=== PATIENT | female | born 1955 | race Caucasian/White ===

== ENCOUNTER 2017-11-19 11:11 | Emergency (ER) | payer MEDICARE, MEDICAID, SELFPAY ==
[2017-11-19 11:18] VITALS: BP 147/88; PULSE 95; RESP 12; TEMP 37; O2SAT 95
[2017-11-19] MEDS: HYDROcodone 5/Acetaminophen 325 TAB PO (12:01)
--- NOTE | 2017-11-19 12:20 | NUR.NOTE ---
Nursing Note: Patients wound cleaned with hibiclens and water per provider order. Tolerated with procedure without complaint
[2017-11-19] MEDS: Bacitracin 30 GM TUBE TP (13:08)
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
[2017-11-19 13:30] VITALS: BP 147/88; PULSE 95; RESP 12; TEMP 37; O2SAT 95
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
== END 2017-11-19 13:31 | disposition home or self-care (01) ==
PROVIDERS: Emergency Provider Nurse Practitioner Family
DX: T23.231A Burn of second degree of multiple right fingers (nail), not including thumb, initial encounter (principal); T22.211A Burn of second degree of right forearm, initial encounter; T22.231A Burn of second degree of right upper arm, initial encounter; T22.251A Burn of second degree of right shoulder, initial encounter; T21.23XA Burn of second degree of upper back, initial encounter; T31.0 Burns involving less than 10% of body surface; X08.8XXA Exposure to other specified smoke, fire and flames, initial encounter
CPT/HCPCS: 16025; 90471

== ENCOUNTER 2021-09-10 14:30 | Outpatient (RCR) | payer MEDICARE, MEDICAID, SELFPAY ==
--- OUTSIDE RECORDS SUMMARY | 2021-09-03 01:11 | XMS_ITS ---
:1955 Author Care Team Providers Name Role Phone ANA LOPEZ MD Primary Care Provider [phone] PARADISE BUSTILLO MD Urologist [phone] Allergies Code Code System Name Reaction Severity Status Onset NKDA ? Medications Name Status Start Date Stop Date ? ? Acetaminophen Extra Strength 500 mg tablet Active 08/30 Not available Take 1000 mg every 6 hours by oral route. albuterol sulfate 0.63 mg/3 mL solution for nebulization Active 08/30/2018 Not available Inhale 2.5 mg every 4 hours by inhalation route as needed. aluminum-mag hydroxide-simethicone 200 mg-200 mg-20 mg/5 mL oral susp Active 08/30/2018 Not available Take 30 mL every 6 hours by oral route as needed. amitriptyline 25 mg tablet Completed 10/11/201101/11 1 (one) Tablet: at bedtime amoxicillin 500 mg capsule Completed ? 08/30 amoxicillin 875 mg tablet Completed 03/26/20122012 1 Tablet: bid - twice daily amoxicillin 875 mg-potassium clavulanate 125 mg Completed ? 08/30/2018 tablet aspirin 81 mg tablet,delayed release Completed 02/22/2011 03/08/[address]: daily atorvastatin Completed ? 08/30/2018 atorvastatin 20 mg tablet Active ? Not av ailable atorvastatin 40 mg tablet Active ? Not av ailable benzonatate 200 mg capsule Active 08/30/2018 Not a vailable Take 200 mg 3 times a day by oral route. Carafate 1 gram tablet Completed 10/11/2011 2 1 Tablet: 1/2 hour before meals and prior to bed time Celebrex 200 mg capsule Completed 07/04/2008 07/05/19 09 1 (one) Capsule: daily Chantix Starting Month Box 0.5 mg (11)-1 mg Active ? Not available (42) tablets in dose pack Cipro 500 mg tablet Completed 03/08/2011 03/08/2011 1 Tablet: bid - twice daily Clarinex 5 mg tablet Completed 08/06/2007 10/15/2007 1 (one) Tablet: Daily Cleocin 100 mg vaginal suppository Completed 09/19/2005 09/26/2005 1 (one) Suppository: qhs / HS Cleocin T 1 % solution Completed 05/22/2012 5 1 Soln: see comments clindamycin 1 % lotion Active ? Not avail able APPLY A THIN LAYER TO AFFECTED AREA(S) TOPICALLY TWO TIMES A DA Y codeine 10 mg-guaifenesin 100 mg/5 mL oral liquid Active 08/30/2018 Not available Take 10 mL every 4 hours by oral route as needed. Coumadin 2.5 mg tablet Unknown 03/01/2011 Not avail able 1 Tablet: q pm cyclobenzaprine 10 mg tablet Active ? Not available Dexilant 30 mg capsule, delayed release Active ? Not available docusate sodium 100 mg capsule Active 08/30/2018 N ot available Take 200 mg every 24 hours by oral route. doxepin 10 mg capsule Completed 11/16/2011 01/12/2012 3 Capsule: at bedtime Dulcolax (bisacodyl) 10 mg rectal suppository Active Not available Insert 10 mg every 24 hours by rectal route as needed. Eliquis 5 mg tablet Active ? Not availabl e fentanyl 50 mcg/hr transdermal patch Completed 04/05/2005 08/19/2005 1 Patch 72HR: q 3 days prn pain ferrous sulfate 325 mg (65 mg iron) tablet Active 08/30 Not available Take 1 tablet every day by oral route. Flovent HFA 44 mcg/actuation aerosol inhaler Active ? Not available fluconazole 150 mg tablet Active ? Not av ailable folic acid 1 mg tablet Completed 02/13/2012 3 1 Tablet: daily gentamicin 0.3 % eye drops Active ? Not a vailable guaifenesin ER 600 mg tablet, extended release 12 hr Active 08/30/2018 Not available Take 600 mg twice a day by oral route. hydrochlorothiazide 25 mg tablet Completed ? 08/30/2018 hydromorphone (PF) 1 mg/mL injection solution Active Not available Take 1 mg every 2 hours by injection route as needed. hydromorphone 2 mg tablet Completed ? 2018 hydromorphone 4 mg tablet Active ? Not av ailable hydroxyzine HCl 25 mg tablet Completed 06/06/201210/2014 1 Tablet: q 4 hours prn for hives ibuprofen 600 mg tablet Active ? Not avai lable ipratropium 0.5 mg-albuterol 3 mg (2.5 mg base)/3 mL nebuliz ation soln Active 08/30/2018 Not available Inhale 3 mL by nebulization route. Keflex 250 mg capsule Completed 01/03/2007 01/08/2007 1 (one) Cap: 4 times a day Levaquin 500 mg tablet Completed 06/05/2012 3 1 (one) Tablet: daily levofloxacin 750 mg/150 mL in 5 % dextrose intravenous piggy back Active 08/30/2018 Not available Infuse 750 mg every 24 hours by intravenous route. Infuse 150 ml over 90 minutes levothyroxine 50 mcg tablet Active ? Not available Lexapro 20 mg tablet Completed 03/21/2007 03/21/2007 1 (one) Tablet: daily Lidocaine Viscous 2 % mucosal solution Active ? Not available Lidoderm 5 % topical patch Active 08/30/2018 Not a vailable Apply 1 patch every 24 hours by transdermal route. Remove after 12 hours. loratadine 10 mg tablet Active 08/30/2018 Not avai lable Take 1 tablet every day by oral route. Lovenox 100 mg/mL subcutaneous syringe Completed 2 04/22/2011 98 Solution: daily Lyrica 150 mg capsule Active 08/30/2018 Not availa ble Take 1 capsule every day by oral route. meropenem 1 gram intravenous solution Active 08/30/2018 Not available Inject 1 g every 8 hours by intravenous route. infuse 100 ml over 30 minutes metoprolol succinate ER 100 mg tablet,extended Completed ? 08/30/2018 release 24 hr metoprolol tartrate 100 mg-hydrochlorothiazide 25 mg tablet Comp leted ? 08/30/2018 Take 1 tablet every day by oral route. metronidazole 500 mg tablet Completed ? 08/18 Mobic 7.5 mg tablet Completed 02/16/2011 02/16/2011 1 (one) Tablet: daily nabumetone 750 mg tablet Completed 03/08/2011 011 1 Tablet: bid - twice daily Neurontin 100 mg capsule Completed 11/14/2012 015 1 (one) Capsule Capsule: three times daily Neurontin 300 mg capsule Completed 08/18/2008 009 1 (one) Capsule: at bedtime Neurontin 600 mg tablet Completed 08/18/2008 08/19/19 09 1 (one) Tablet: qhs - at bedtime Nicoderm CQ 14 mg/24 hr daily transdermal patch Completed 06/06/2008 07/06/2008 one Patch 24HR: as directed Nicoderm CQ 7 mg/24 hr daily transdermal patch Completed 0 08/06/2008 09/23/2008 1 (one) Patch 24HR: qd - daily nicotine 21 mg/24 hr daily transdermal patch Active Not available Apply 1 patch every 24 hours by transdermal route as needed. nicotine 21mg/24hr-14mg/24hr-7mg/24hr daily transderm patches,sequentl Completed 05/19/2010 07/28/2010 1 (one) Kit: daily ondansetron 4 mg disintegrating tablet Active 9 Not available Take 4 mg every 6 hours by oral route. ondansetron HCl (PF) 4 mg/2 mL injection solution Active 08/30/2018 Not available Take 4 mg every 6 hours by injection route as needed. IVP oxycodone 10 mg tablet Completed 06/25/2012 5 1 Tablet: bid - twice daily oxycodone-acetaminophen 10 mg-325 mg tablet Completed 08/1909/14/2010 1 Tablet: BID prn pain oxycodone-acetaminophen 5 mg-325 mg tablet Completed 01/0302/02/2011 1 Tablet: bid - twice daily Phenergan 25 mg rectal suppository Completed 05/27/2005 08/19/2005 1 (one) Suppository: QID prn nausea Plavix 75 mg tablet Completed 02/22/2011 03/08/2011 1 Tablet: daily polyethylene glycol 3350 17 gram/dose oral powder Active 08/30/2018 Not available Take 17 g every 24 hours by oral route as needed. potassium chloride 20 mEq/L in 0.9 % sodium chloride intrave nous Active 08/30/2018 Not available Inject 120 mL every hour by intravenous route. prednisolone acetate 1 % eye drops,suspension Active ? Not available Prevacid 30 mg capsule,delayed release Completed 6 02/26/2007 1 (one) Cap DR: Daily Prilosec 20 mg capsule,delayed release Completed 2 10/11/[address]: 1/2 hour before first meal of the day prochlorperazine maleate 5 mg tablet Active 08/30/2018 Not available Take 5 mg every 4 hours by oral route as needed. Protonix 40 mg tablet,delayed release Completed 03/26/2012 03/28/[address]: daily Prozac 40 mg capsule Completed 08/17/2010 08/17/2010 1 (one) Capsule: daily Requip 3 mg tablet Completed 06/11/2012 04/08/2014 1 Tablet: at bedtime sennosides 8.6 mg tablet Active 08/30/2018 Not lucia ilable Take 17.2 mg every 24 hours by oral route as needed. simethicone 125 mg capsule Completed 08/19/200508/26 1 (one) Capsule: QID simvastatin 20 mg tablet Completed 07/09/2012 015 1 Tablet: qhs - at bedtime Spiriva with HandiHaler 18 mcg and inhalation Active ? Not available capsules sumatriptan 100 mg tablet Completed 11/14/20122013 1 Tablet: as needed may repeat in 2 hours if needed sumatriptan 50 mg tablet Active ? Not lucia ilable Synthroid 100 mcg tablet Completed 02/22/2011 012 1 (one) Tablet: daily Terazol 3 0.8 % vaginal cream Completed 01/03/2005 1 (one) Applicator(s): QHS / HS Terazol 7 0.4 % vaginal cream Completed 09/22/2011 1 (one) Applicator(s): QHS / HS Topamax 100 mg tablet Completed 06/21/2012 11/14/2012 1 (one) Tablet: at bedtime Topamax 50 mg tablet Completed 04/11/2007 10/31/2007 2 Tablet: QHS / HS triamterene 37.5 mg-hydrochlorothiazide 25 mg Active ? Not available capsule Ultram 50 mg tablet Completed 02/16/2011 02/16/2011 1 Tablet: Every 6 hours as needed vancomycin 1,000 mg intravenous injection Active 2018 Not available Inject 1 g every 8 hours by intravenous route. infuse 250 ml over 60 minutes Ventolin HFA 90 mcg/actuation aerosol inhaler Active ? Not available Vitamin B-12 1,000 mcg tablet Active 08/30/2018 No t available Take 1 tablet every day by oral route. Vitamin B-6 50 mg tablet Completed 07/25/2011 012 1 Tablet: daily Wellbutrin XL 150 mg 24 hr tablet, extended release Completed 04/06/2010 04/06/2010 1 (one) Tab SR 24HR: daily Xopenex HFA 45 mcg/actuation aerosol inhaler Completed 11/14/2012 2 (two) Puff(s): q 4 hours as needed Zocor 80 mg tablet Completed 07/27/2009 10/27/2009 1 (one) Tablet: at bedtime Notes: Med Rec 07/22/2021-laf Problems Name Status Onset Date Source ? Malignant Tumor of Breast Active 08/27/2018 ? Hypothyroidism Active ? History Mixed Hyperlipidemia Active ? History Morbid Obesity Active ? History Anemia Active ? History Hereditary Coagulation Factor Deficiency Active ? History Tobacco Dependence Syndrome Active ? Hist ory Depressive Disorder Active ? History Extrapyramidal Disease Unknown ? History Restless Legs Active ? History Chronic Pain Syndrome Active ? History Paroxysmal Hemicrania Active ? History Migraine without Aura Active ? History Lesion of Ulnar Nerve Active ? History Cerebrovascular Disease Active ? History Arterial Thrombosis Active ? History Deep Venous Thrombosis of Lower Extremity Active ? History Periapical Abscess without Sinus Tract Active ? History Gastroesophageal Reflux Disease Active ? History Disorder of Esophagus Active ? History Blood in Urine Active ? History Vaginospasm Active ? History Arthropathy Active ? History Shoulder Joint Pain Active ? History Degeneration of Cervical Intervertebral Disc Active ? History Degeneration of Lumbar Intervertebral Disc Active ? History Sciatica Active ? History Consciousness And/or Awareness Finding Unknown ? History Amnesia Active ? History Anesthesia of Skin Active ? History Dyspnea Active ? History Mixed Urinary Incontinence Active ? Histo ry Adverse Reaction Unknown ? History Pre-surgery Testing Unknown ? History Pre-surgery Evaluation Active ? History Procedure by Method Unknown ? History Clinical Finding Unknown ? History Pain in Left Foot Active ? History Bilateral Carpal Tunnel Syndrome Active ? History Pain in Right Hip Joint Active ? History Procedures Date Name Performed by ? 05/18/2016 Carpal Tunnel Surgery Information not av ailable 03/20/1997 Bilateral Mastectomy Information not lucia ilable Notes: with left axillary lymph node d issection and breast reconstruction 11/07/1988 Caesarean Section Information not avai lable 03/20/1971 Appendectomy Information not avai lable Notes: Ruptured ? Stent Information not avai lable Notes: bilateral iliac arteries ? Hip Replacement Information not avai lable Notes: bilateral Results Lab Results Date Name Specimen Result Interpretation Description Value Range Status Address ? 08/01/2021 Prothrombin Time BLD ? Pt 10.9 S 9.1-11.7 F inal [facility] ab (Internal) : [address] t ? ? BLD ? Inr 1.1 ? Final [facility] ab (Internal) : [address] 08/01/2021 Lipase, Serum or S ? Lip 383 U/L 73-393 Fi nal [place] Plasma U/L [facility] L ab (Internal) : [address] 08/01/2021 Hepatic Function S High Tbil 5.60 0.20-1.00 Final [place] Panel, Serum mg/dL mg/dL [facility] L ab (Internal) : [address] t ? ? S High Dbil 4.17 0.00-0.20 Final [place] mg/dL mg/dL [facility] L ab (Internal) : [address] t ? ? S High Alp 293 U/L 46-116 Final [place] U/L [facility] L ab (Internal) : [address] t ? ? S High Alt 179 U/L 14-59 U/L [facility] (Sgpt) [facility] L ab (Internal) : [address] t ? ? S High Ast 121 U/L 15-37 U/L Final [place] (Sgot) [facility] L ab (Internal) : [address] t ? ? S High Ggt 1314 U/L 5-55 U/L Final [facility] L ab (Internal) : [address] t ? ? S ? Tp 6.7 g/dL 6.4-8.2 Final [place] g/dL [facility] L ab (Internal) : [address] t ? ? S Low Alb 3.0 g/dL 3.4-5.0 Final [place] g/dL [facility] ab (Internal) : [address] t 08/01/2021 CMP, Serum or S High g/r 295 74-106 Final [place] Plasma mg/dL mg/dL [facility] ab (Internal) : [address] t ? ? S ? Bun 14 mg/dL 7-18 Final [place] mg/dL [facility] L ab (Internal) : [address] t ? ? S ? Crea 0.8 0.6-1.0 Final [place] mg/dL mg/dL [facility] ab (Internal) : [address] t ? ? S ? Ca 9.4 8.5-10.1 Final [place] mg/dL mg/dL [facility] ab (Internal) : [address] t ? ? S Low Na 128 136-145 Final [place] mmol/L mmol/L [facility] L ab (Internal) : [address] t ? ? S ? K 4.3 3.5-5.1 Final [place] mmol/L mmol/L [facility] L ab (Internal) : [address] t ? ? S Low Cl 93 98-107 Final [place] mmol/l mmol/l [facility] (Internal) : [address] t ? ? S ? Tco2 26.9 21.0-32.0 Final [place] mmol/L mmol/L [facility] L ab (Internal) : [address] t ? ? S ? Tp 6.7 g/dL 6.4-8.2 Final [place] g/dL [facility] L ab (Internal) : [address] t ? ? S Low Alb 3.0 g/dL 3.4-5.0 Final [place] g/dL [facility] (Internal) : [address] t ? ? S High Tbil 5.60 0.20-1.00 Final [place] mg/dL mg/dL [facility] L ab (Internal) : [address] t ? ? S High Alp 293 U/L 46-116 Final [place] U/L [facility] (Internal) : [address] t ? ? S High Alt 179 U/L 14-59 U/L Final [place] (Sgpt) [facility] L ab (Internal) : [address] t ? ? S High Ast 121 U/L 15-37 U/L Final [place] (Sgot) [facility] L ab (Internal) : [address] [facility] 08/01/2021 Phosphorus, S High Phos 5.1 2.6-4.7 Final [place] Serum or Plasma mg/dL mg/dL [facility] L ab (Internal) : [address] [facility] 08/01/2021 Triglycerides, S ? Trig 105 0-150 Final [place] Serum mg/dL mg/dL [facility] L ab (Internal) : [address] [facility] 08/01/2021 Magnesium, QN, S ? mg 2.1 1.8-2.4 Agueda l [place] Serum or Plasma mg/dL mg/dL [facility] L ab (Internal) : [address] [facility] 08/01/2021 Cancer Ag 19-9, S High Carboh 18955 <35 U/mL F inal [place] Serum or Plasma ydrate U/mL [facility] L ab 19-9, S (Internal ): [address] [facility] 08/01/2021 Carcinoembryonic S ? Carcin 4.5 see note Final [place] Ag, Quant, Serum oembryo NG/mL NG/mL [facility] Lab Antigen (Internal ): [address] [facility] 07/31/2021 Lipase, Serum or S High Lip 517 U/L 73-393 Fi nal [place] Plasma U/L [facility] L ab (Internal) : [address] [facility] 07/31/2021 CMP, Serum or S High g/r 172 74-106 Final [place] Plasma mg/dL mg/dL [facility] L ab (Internal) : [address] t ? ? S ? Bun 7 mg/dL 7-18 Final [place] mg/dL [facility] L ab (Internal) : [address] t ? ? S ? Crea 0.7 0.6-1.0 Final [place] mg/dL mg/dL [facility] L ab (Internal) : [address], [place] ? ? S ? Ca 8.5 8.5-10.1 Final [place] mg/dL mg/dL [facility] L ab (Internal) : [address] t ? ? S Low Na 135 136-145 Final [place] mmol/L mmol/L [facility] L ab (Internal) : [address] t ? ? S ? K 3.9 3.5-5.1 Final [place] mmol/L mmol/L [facility] (Internal) : [address] t ? ? S ? Cl 101 98-107 Final [place] mmol/l mmol/l [facility] L ab (Internal) : [address] t ? ? S ? Tco2 26.3 21.0-32.0 Final [place] mmol/L mmol/L [facility] L ab (Internal) : [address] t ? ? S Low Tp 6.2 g/dL 6.4-8.2 Final [place] g/dL [facility] (Internal) : [address] t ? ? S Low Alb 3.0 g/dL 3.4-5.0 Final [place] g/dL [facility] L ab (Internal) : [address] t ? ? S High Tbil 4.90 0.20-1.00 Final [place] mg/dL mg/dL [facility] L ab (Internal) : [address] t ? ? S High Alp 259 U/L 46-116 Final [place] U/L [facility] (Internal) : [address] t ? ? S High Alt 138 U/L 14-59 U/L Final [place] (Sgpt) [facility] L ab (Internal) : [address] t ? ? S High Ast 103 U/L 15-37 U/L Final [place] (Sgot) [facility] L ab (Internal) : [address] 07/31/2021 Phosphorus, S ? Phos 3.8 2.6-4.7 Final [place] Serum or Plasma mg/dL mg/dL [facility] L ab (Internal) : [address] 07/31/2021 Triglycerides, S ? Trig 96 mg/dL 0-150 Fin al [place] Serum mg/dL [facility] (Internal) : [address] [facility] 07/31/2021 Magnesium, QN, S ? mg 2.0 1.8-2.4 Agueda [facility] Serum or Plasma mg/dL mg/dL [facility] L ab (Internal) : [address] [facility] 07/31/2021 Bilirubin, S High Dbil 3.87 0.00-0.20 Final [place] Direct, Serum or mg/dL mg/dL [facility] L ab (Internal) : [address] [facility] 07/31/2021 Gamma-glutamyl S High Ggt 1086 U/L 5-55 U/L F [facility] Transferase Count ry (Ggt), Serum Hosp ital Lab (Internal) : [address] [facility] 07/31/2021 Prothrombin Time BLD High Pt 12.1 S 9.1-11.7 F [facility] (Internal) : [address] [facility] t ? ? BLD ? Inr 1.2 ? Final [facility] L ab (Internal) : [address] [facility] 07/30/2021 Lipase, Serum or S High Lip 628 U/L 73-393 Fi nal [place] Plasma U/L [facility] L ab (Internal) : [address] [facility] 07/30/2021 Bilirubin, S High Dbil 3.66 0.00-0.20 Final [place] Direct, Serum or mg/dL mg/dL [facility] L ab (Internal) : [address] [facility] 07/30/2021 Prothrombin Time BLD High Pt 12.4 S 9.1-11.7 F [facility] (Internal) : [address] [facility] t ? ? BLD ? Inr 1.2 ? Final [facility] L ab (Internal) : [address] [facility] 07/30/2021 Gamma-glutamyl S High Ggt 1036 U/L 5-55 U/L F [facility] Transferase Count ry (Ggt), Serum Hosp ital Lab (Internal) : [address] [facility] 07/30/2021 Magnesium, QN, S ? mg 1.8 1.8-2.4 Agueda l [place] Serum or Plasma mg/dL mg/dL [facility] L ab (Internal) : [address] 07/30/2021 Phosphorus, S ? Phos 3.8 2.6-4.7 Final [place] Serum or Plasma mg/dL mg/dL [facility] L ab (Internal) : [address] 07/30/2021 Triglycerides, S ? Trig 109 0-150 Final [place] Serum mg/dL mg/dL [facility] (Internal) : [address] 07/30/2021 CMP, Serum or S High g/r 125 74-106 Final [place] Plasma mg/dL mg/dL [facility] L [facility] (Internal) : [address] t ? ? S Low Bun 4 mg/dL 7-18 Final [place] mg/dL [facility] (Internal) : [address] t ? ? S ? Crea 0.7 0.6-1.0 Final [place] mg/dL mg/dL [facility] ab (Internal) : [address] t ? ? S ? Ca 9.0 8.5-10.1 Final [place] mg/dL mg/dL [facility] ab (Internal) : [address] t ? ? S Low Na 134 136-145 Final [place] mmol/L mmol/L [facility] ab (Internal) : [address] t ? ? S ? K 3.6 3.5-5.1 Final [place] mmol/L mmol/L [facility] L ab (Internal) : [address] t ? ? S ? Cl 99 98-107 Final [place] mmol/l mmol/l [facility] L [facility] (Internal) : [address] t ? ? S ? Tco2 22.8 21.0-32.0 Final [place] mmol/L mmol/L [facility] L ab (Internal) : [address] t ? ? S ? Tp 6.4 g/dL 6.4-8.2 Final [place] g/dL [facility] ab (Internal) : [address] t ? ? S Low Alb 3.2 g/dL 3.4-5.0 Final [place] g/dL [facility] ab (Internal) : [address] t ? ? S High Tbil 4.60 0.20-1.00 Final [place] mg/dL mg/dL [facility] L ab (Internal) : [address] t ? ? S High Alp 243 U/L 46-116 Final [place] U/L [facility] L ab (Internal) : [address] t ? ? S High Alt 135 U/L 14-59 U/L Final [place] (Sgpt) [facility] L ab (Internal) : [address] t ? ? S High Ast 111 U/L 15-37 U/L Final [place] (Sgot) [facility] L ab (Internal) : [address] t 07/29/2021 Cbc BLD ? Wbc 7.0 5.0-10.0 Final Nort h 10*3/uL 10*3/uL [facility] L ab (Internal) : [address] t ? ? BLD Low Rbc 3.79 4.10-5.30 Final [place] 10*6/uL 10*6/uL [facility] L ab (Internal) : [address] t ? ? BLD Low Hgb 11.4 12.0-16.0 Final [place] g/dL g/dL [facility] L ab (Internal) : [address] t ? ? BLD Low Hct 32.7 % 37.0-47.0 Final [facility] L ab (Internal) : [address] t ? ? BLD ? Mcv 86.3 fL 80.0-96.0 Final [facility] L ab (Internal) : [address] t ? ? BLD ? Mch 30.1 pg 26.0-32.0 Final [place] pg [facility] L ab (Internal) : [address] t ? ? BLD ? Mchc 34.9 31.0-35.0 Final [place] g/dL g/dL [facility] L ab (Internal) : [address] t ? ? BLD ? Rdw 13.3 % 11.5-14.5 Final [facility] L ab (Internal) : [address] t ? ? BLD ? Plt 212 130-450 Final [place] 10*3/uL 10*3/uL [facility] ab (Internal) : [address] t ? ? BLD ? Anc 4.40 ? Final [place] 10*3/uL [facility] ab (Internal) : [address] t 07/29/2021 CMP, Serum or S High g/r 129 74-106 Final [place] Plasma mg/dL mg/dL [facility] (Internal) : [address] t ? ? S Low Bun 3 mg/dL 7-18 Final [place] mg/dL [facility] (Internal) : [address] t ? ? S ? Crea 0.7 0.6-1.0 Final [place] mg/dL mg/dL [facility] (Internal) : [address] t ? ? S Low Ca 8.4 8.5-10.1 Final [place] mg/dL mg/dL [facility] (Internal) : [address] t ? ? S ? Na 136 136-145 Final [place] mmol/L mmol/L [facility] (Internal) : [address] t ? ? S ? K 3.6 3.5-5.1 Final [place] mmol/L mmol/L [facility] (Internal) : [address] t ? ? S ? Cl 104 98-107 Final [place] mmol/l mmol/l [facility] (Internal) : [address] t ? ? S ? Tco2 26.9 21.0-32.0 Final [place] mmol/L mmol/L [facility] (Internal) : [address] t ? ? S Low Tp 5.6 g/dL 6.4-8.2 Final [place] g/dL [facility] (Internal) : [address] t ? ? S Low Alb 2.9 g/dL 3.4-5.0 Final [place] g/dL [facility] (Internal) : [address] t ? ? S High Tbil 3.60 0.20-1.00 Final [place] mg/dL mg/dL [facility] (Internal) : [address] t ? ? S High Alp 160 U/L 46-116 Final [place] U/L [facility] L ab (Internal) : [address] t ? ? S High Alt 93 U/L 14-59 U/L Final [place] (Sgpt) [facility] L [facility] (Internal) : [address] t ? ? S High Ast 76 U/L 15-37 U/L Final [place] (Sgot) [facility] (Internal) : [address] 07/29/2021 Lipase, Serum or S High Lip 679 U/L 73-393 Fi nal [place] Plasma U/L [facility] (Internal) : [address] 07/28/2021 Cbc BLD ? Wbc 7.0 5.0-10.0 Final Nort [place] 10*3/uL 10*3/uL [facility] (Internal) : [address] ? ? BLD Low Rbc 4.04 4.10-5.30 Final [place] 10*6/uL 10*6/uL [facility] (Internal) : [address] t ? ? BLD ? Hgb 12.4 12.0-16.0 Final [place] g/dL g/dL [facility] L ab (Internal) : [address] ? ? BLD Low Hct 35.0 % 37.0-47.0 Final [facility] L ab (Internal) : [address] ? ? BLD ? Mcv 86.6 fL 80.0-96.0 Final [facility] L ab (Internal) : [address] t ? ? BLD ? Mch 30.7 pg 26.0-32.[address] [facility] L ab (Internal) : [address] t ? ? BLD High Mchc 35.4 31.0-35.0 Final [place] g/dL g/dL [facility] (Internal) : [address] ? ? BLD ? Rdw 13.3 % 11.5-14.5 Final [facility] L ab (Internal) : [address] ? ? BLD ? Plt 224 130-450 Final [place] 10*3/uL 10*3/uL [facility] ([facility] : [address] t ? ? BLD ? Anc 4.45 ? Final [place] 10*3/uL [facility] (Internal) : [address] 07/28/2021 CMP, Serum or S ? g/r 106 74-106 Final [place] Plasma mg/dL mg/dL [facility] (Internal) : [address] t ? ? S Low Bun 5 mg/dL 7-18 Final [place] mg/dL [facility] (Internal) : [address] t ? ? S ? Crea 0.7 0.6-1.0 Final [place] mg/dL mg/dL [facility] (Internal) : [address] t ? ? S ? Ca 8.5 8.5-10.1 Final [place] mg/dL mg/dL [facility] (Internal) : [address] t ? ? S Low Na 135 136-145 Final [place] mmol/L mmol/L [facility] (Internal) : [address] t ? ? S Low K 2.9 3.5-5.1 Final [place] mmol/L mmol/L [facility] (Internal) : [address] t ? ? S ? Cl 99 98-107 Final [place] mmol/l mmol/l [facility] (Internal) : [address] t ? ? S ? Tco2 27.6 21.0-32.0 Final [place] mmol/L mmol/L [facility] (Internal) : [address] t ? ? S Low Tp 6.0 g/dL 6.4-8.2 Final [place] g/dL [facility] (Internal) : [address] t ? ? S Low Alb 3.0 g/dL 3.4-5.0 Final [place] g/dL [facility] (Internal) : [address] t ? ? S High Tbil 2.60 0.20-1.00 Final [place] mg/dL mg/dL [facility] (Internal) : [address] t ? ? S High Alp 145 U/L 46-116 Final [place] U/L [facility] (Internal) : [address] t ? ? S High Alt 77 U/L 14-59 U/L Final [place] (Sgpt) [facility] L ab (Internal) : [address] t ? ? S High Ast 53 U/L 15-37 U/L Final [place] (Sgot) [facility] L ab (Internal) : [address] 07/28/2021 Lipase, Serum or S High Lip 602 U/L 73-393 Fi nal [place] Plasma U/L [facility] (Internal) : [address] [place] 07/28/2021 CRP, High S High Rcrp 35.73 0.00-3.00 Final [place] Sensitivity, mg/L mg/L Coun try Serum or Plasma H ospital Lab (Internal) : [address] 07/27/2021 CBC W/ Auto Diff BLD ? Wbc 7.4 5.0-10.0 F inal [place] 10*3/uL 10*3/uL [facility] L ab (Internal) : [address] ? ? BLD Low Rbc 3.97 4.10-5.30 Final [place] 10*6/uL 10*6/uL [facility] L ab (Internal) : [address] ? ? BLD ? Hgb 12.1 12.0-16.0 Final [place] g/dL g/dL [facility] L ab (Internal) : [address] ? ? BLD Low Hct 34.6 % 37.0-47.0 Final [place] % [facility] L ab (Internal) : [address] ? ? BLD ? Mcv 87.2 fL 80.0-96.0 Final [place] fL [facility] L ab (Internal) : [address] ? ? BLD ? Mch 30.5 pg 26.0-32.0 Final [place] pg [facility] L ab (Internal) : [address] ? ? BLD ? Mchc 35.0 31.0-35.0 Final [place] g/dL g/dL [facility] L ab (Internal) : [address] ? ? BLD ? Rdw 13.4 % 11.5-14.5 Final [facility] L ab (Internal) : [address] ? ? BLD ? Plt 240 130-450 Final [place] 10*3/uL 10*3/uL [facility] (Internal) : [address] t ? ? BLD ? Anc 4.82 ? Final [place] 10*3/uL [facility] (Internal) : [address] t ? ? BLD High Nlr 3.37 0.00-3.20 Final [facility] L ab (Internal) : [address] t ? ? BLD ? Neutro 65.3 % 40.0-75.0 Final [facility] L ab (Internal) : [address] t ? ? BLD Low Lymph 19.4 % 20.0-50.0 Final [facility] L ab (Internal) : [address] t ? ? BLD High [place] 11.4 % 2.0-10.0 Final [facility] L ab (Internal) : [address] t ? ? BLD ? Eos 3.1 % 1.0-6.0 % Final [facility] L ab (Internal) : [address] t ? ? BLD ? Baso 0.4 % 0.0-1.0 % Final [facility] ab (Internal) : [address] t ? ? BLD ? Ig 0.4 % 0.0-0.9 % Final [facility] (Internal) : [address] t 07/27/2021 CRP, High S High Rcrp 56.16 0.00-3.00 Final [place] Sensitivity, mg/L mg/L Coun try Serum or Plasma H ospital Lab (Internal) : [address] t 07/27/2021 Lipase, Serum or S High Lip 660 U/L 73-393 Fi nal [place] Plasma U/L [facility] L ab (Internal) : [address] t 07/27/2021 CMP, Serum or S High g/r 164 74-106 Final [place] Plasma mg/dL mg/dL [facility] (Internal) : [address] t ? ? S Low Bun 3 mg/dL 7-18 Final [place] mg/dL [facility] ([facility]) : [address] t ? ? S ? Crea 0.7 0.6-1.0 Final [place] mg/dL mg/dL [facility] (Internal) : [address] t ? ? S ? Ca 8.7 8.5-10.1 Final [place] mg/dL mg/dL [facility] (Internal) : [address] t ? ? S ? Na 138 136-145 Final [place] mmol/L mmol/L [facility] (Internal) : [address] t ? ? S ? K 3.6 3.5-5.1 Final [place] mmol/L mmol/L [facility] (Internal) : [address] t ? ? S ? Cl 104 98-107 Final [place] mmol/l mmol/l [facility] (Internal) : [address] t ? ? S ? Tco2 24.7 21.0-32.0 Final [place] mmol/L mmol/L [facility] (Internal) : [address] t ? ? S Low Tp 5.6 g/dL 6.4-8.2 Final [place] g/dL [facility] (Internal) : [address] t ? ? S Low Alb 2.8 g/dL 3.4-5.0 Final [place] g/dL [facility] (Internal) : [address] t ? ? S High Tbil 2.20 0.20-1.00 Final [place] mg/dL mg/dL [facility] (Internal) : [address] t ? ? S High Alp 125 U/L 46-116 Final [place] U/L [facility] (Internal) : [address] t ? ? S High Alt 63 U/L 14-59 U/L Final [place] (Sgpt) [facility] (Internal) : [address] t ? ? S High Ast 52 U/L 15-37 U/L Final [place] (Sgot) [facility] (Internal) : [address] t 07/26/2021 CBC W/ Auto Diff BLD High Wbc 15.1 5.0-10.0 F inal [place] 10*3/uL 10*3/uL [facility] (Internal) : [address] t ? ? BLD ? Rbc 4.23 4.10-5.30 Final [place] 10*6/uL 10*6/uL [facility] (Internal) : [address] t ? ? BLD ? Hgb 12.9 12.0-16.0 Final [place] g/dL g/dL [facility] (Internal) : [address] t ? ? BLD Low Hct 36.4 % 37.0-47.0 Final [place] % [facility] (Internal) : [address] t ? ? BLD ? Mcv 86.1 fL 80.0-96.0 Final [place] fL [facility] (Internal) : [address] ? ? BLD ? Mch 30.5 pg 26.0-32.0 Final [place] pg [facility] (Internal) : [address] t ? ? BLD High Mchc 35.4 31.0-35.0 Final [place] g/dL g/dL [facility] (Internal) : [address] t ? ? BLD ? Rdw 13.2 % 11.5-14.5 Final [facility] L ab (Internal) : [address] t ? ? BLD ? Plt 252 130-450 Final [place] 10*3/uL 10*3/uL [facility] (Internal) : [address] 07/26/2021 CMP, Serum or S High g/r 185 74-106 Final [place] Plasma mg/dL mg/dL [facility] (Internal) : [address] t ? ? S Low Bun 4 mg/dL 7-18 Final [place] mg/dL [facility] (Internal) : [address] t ? ? S ? Crea 0.8 0.6-1.0 Final [place] mg/dL mg/dL [facility] (Internal) : [address] t ? ? S Low Ca 8.4 8.5-10.1 Final [place] mg/dL mg/dL [facility] (Internal) : [address] t ? ? S Low Na 133 136-145 Final [place] mmol/L mmol/L [facility] (Internal) : [address] t ? ? S Low K 3.2 3.5-5.1 Final [place] mmol/L mmol/L [facility] (Internal) : [address] t ? ? S ? Cl 98 98-107 Final [place] mmol/l mmol/l [facility] (Internal) : [address] t ? ? S ? Tco2 25.7 21.0-32.0 Final [place] mmol/L mmol/L [facility] (Internal) : [address] t ? ? S Low Tp 6.0 g/dL 6.4-8.2 Final [place] g/dL [facility] (Internal) : [address] t ? ? S Low Alb 3.0 g/dL 3.4-5.0 Final [place] g/dL [facility] (Internal) : [address] t ? ? S High Tbil 1.20 0.20-1.00 Final [place] mg/dL mg/dL [facility] (Internal) : [address] t ? ? S ? Alp 81 U/L 46-116 Final [place] U/L [facility] L ab (Internal) : [address] t ? ? S ? Alt 29 U/L 14-59 U/L Final [place] (Sgpt) [facility] L ab (Internal) : [address] t ? ? S ? Ast 16 U/L 15-37 U/L Final [place] (Sgot) [facility] L ab (Internal) : [address] 07/26/2021 CRP, High S High Rcrp 39.59 0.00-3.00 Final [place] Sensitivity, mg/L mg/L Coun try Serum or Plasma H ospital Lab (Internal) : [address] 07/26/2021 Differential, BLD High Polys 85 % 40-75 % Final [place] Manual, Blood Cou ntr Hospital L ab (Internal) : [address] t ? ? BLD ? Bands 0 % 0-5 % Final [facility] L ab (Internal) : [address] ? ? BLD Low Lymphs 7 % 20-50 % Final [facility] L ab (Internal) : [address] ? ? BLD ? [place] 8 % 2-10 % Final [facility] L ab (Internal) : [address] t ? ? BLD ? Eos 0 % 0-6 % Final [facility] L ab (Internal) : [address] t ? ? BLD ? Baso 0 % 0-1 % Final [facility] L ab (Internal) : [address] t ? ? BLD ? Atyp 0 % ? Final [facility] L ab (Internal) : [address] ? ? BLD ? Plts, adequate adequate Final [place] [facility] [address] ? ? BLD ? RBC normal normal Final [place] Morphol [facility] L ab (Internal) : [address] 07/26/2021 Neutrophil BLD ? Anc-ma 12.86 ? Final N orth Count, Absolute nual 10*3/uL [place] (Anc), Blood Hosp ital Lab (Internal) : [address] 07/26/2021 Nlr-manual BLD High Nlr - 12.14 0.00-3.20 Final [facility] L ab (Internal) : [address] 07/26/2021 Lipase, Serum or S ? Lip 351 U/L 73-393 Fi nal [place] Plasma U/L [facility] (Internal) : [address] 07/26/2021 Urinalysis, UR ? UA-col yellow pale Final [place] Dipstick, Reflex or yellow [facility] L ab (Internal) : [address] ? ? UR ? UA-jennifer clear clear Final [facility] L ab (Internal) : [address] ? ? UR ? UA-spe <=1.005 1.003-1.0 Final [place] c Grav 35 [facility] L ab (Internal) : [address] ? ? UR ? UA-pH 7.5 [pH] 4.6-8.0 Final [place] [pH] [facility] L ab (Internal) : [address] [place] ? ? UR ? UA-nic negative negative Final [place] k Est [facility] L ab (Internal) : [address] [place] ? ? UR ? UA-nit negative negative Final [place] rite [facility] L ab (Internal) : [address] [place] ? ? UR ? UA-pro negative negative Final [place] t [facility] L ab (Internal) : [address] [place] ? ? UR ? UA-glu 1+ negative Final [place] c [facility] L ab (Internal) : [address] [place] ? ? UR ? UA-ket negative negative Final [facility] ab (Internal) : [address] [place] ? ? UR ? UA-uro normal normal Final [place] familia [facility] ab (Internal) : [address] [place] ? ? UR ? UA-familia negative negative Final [place] i [facility] ab (Internal) : [address] [place] ? ? UR ABNORM UA-blo trace negative Final [place] AL od [facility] L ab (Internal) : [address] 07/26/2021 Urinalysis, UR ? UA-WBC 0-3 0-3 [hpf] [facility] Microscopic [hpf] [facility] Hospital L ab (Internal) : [address] ? ? UR ? UA-RBC 0-2 0-2 [hpf] [facility] [hpf] [facility] ab (Internal) : [address] [place] ? ? UR ABNORM UA-landry few none seen Final [place] AL teria [hpf] [hpf] [facility] ab (Internal) : [address] ? ? UR ABNORM UA-epi moderate none seen Final Nort h AL thelial [hpf] [hpf] [facility] ab (Internal) : [address] ? ? UR ABNORM UA-muc rare none seen Final [place] AL us [hpf] [hpf] [facility] ab (Internal) : [address] 07/26/2021 Culture (Zill[place] UR ? Final microbio ? Fi nal [place] Count), Urine logy Cou ntry results Hospital Lab (Internal) : [address] t 07/26/2021 CBC W/ Auto Diff BLD ? Wbc 9.5 5.0-10.0 F inal [place] 10*3/uL 10*3/uL [facility] L ab (Internal) : [address] ? ? BLD Low Rbc 4.09 4.10-5.30 Final [place] 10*6/uL 10*6/uL [facility] L ab (Internal) : [address] t ? ? BLD ? Hgb 12.4 12.0-16.0 Final [place] g/dL g/dL [facility] L ab (Internal) : [address] t ? ? BLD Low Hct 35.7 % 37.0-47.0 Final [facility] L ab (Internal) : [address] t ? ? BLD ? Mcv 87.3 fL 80.0-96.0 Final [facility] L ab (Internal) : [address] t ? ? BLD ? Mch 30.3 pg 26.0-32.[address] [facility] L ab (Internal) : [address] t ? ? BLD ? Mchc 34.7 31.0-35.0 Final [place] g/dL g/dL [facility] L ab (Internal) : [address] t ? ? BLD ? Rdw 13.4 % 11.5-14.5 Final [facility] L ab (Internal) : [address] t ? ? BLD ? Plt 250 130-450 Final [place] 10*3/uL 10*3/uL [facility] L ab (Internal) : [address] t ? ? BLD ? Anc 6.96 ? Final [place] 10*3/uL [facility] L ab (Internal) : [address] t ? ? BLD High Nlr 5.16 0.00-3.20 Final [facility] L ab (Internal) : [address] t ? ? BLD ? Neutro 73.0 % 40.0-75.0 Final [place] % [facility] (Internal) : [address] t ? ? BLD Low Lymph 14.2 % 20.0-50.0 Final [place] [facility] L [facility] (Internal) : [address] t ? ? BLD High [place] 10.1 % 2.0-10.0 Final [place] % [facility] (Internal) : [address] t ? ? BLD ? Eos 2.1 % 1.0-6.0 % Final [place] [facility] (Internal) : [address] t ? ? BLD ? Baso 0.3 % 0.0-1.0 % Final [place] [facility] (Internal) : [address] t ? ? BLD ? Ig 0.3 % 0.0-0.9 % Final [facility] (Internal) : [address] t 07/26/2021 CMP, Serum or S High g/r 160 74-106 Final [place] Plasma mg/dL mg/dL [facility] (Internal) : [address] t ? ? S Low Bun 4 mg/dL 7-18 Final [place] mg/dL [facility] (Internal) : [address] t ? ? S ? Crea 0.6 0.6-1.0 Final [place] mg/dL mg/dL [facility] L [facility] (Internal) : [address] t ? ? S Low Ca 8.3 8.5-10.1 Final [place] mg/dL mg/dL [facility] L [facility] (Internal) : [address] t ? ? S ? Na 137 136-145 Final [place] mmol/L mmol/L [facility] L [facility] (Internal) : [address] t ? ? S Low K 3.3 3.5-5.1 Final [place] mmol/L mmol/L [facility] (Internal) : [address] t ? ? S ? Cl 104 98-107 Final [place] mmol/l mmol/l [facility] (Internal) : [address] t ? ? S ? Tco2 25.3 21.0-32.0 Final [place] mmol/L mmol/L [facility] (Internal) : [address] t ? ? S Low Tp 5.6 g/dL 6.4-8.2 Final [place] g/dL [facility] L ab (Internal) : [address] t ? ? S Low Alb 2.8 g/dL 3.4-5.0 Final [place] g/dL [facility] L ab (Internal) : [address] t ? ? S High Tbil 1.70 0.20-1.00 Final [place] mg/dL mg/dL [facility] L ab (Internal) : [address] t ? ? S ? Alp 90 U/L 46-116 Final [place] U/L [facility] L ab (Internal) : [address] t ? ? S ? Alt 34 U/L 14-59 U/L Final [place] (Sgpt) [facility] L ab (Internal) : [address] t ? ? S ? Ast 25 U/L 15-37 U/L Final [place] (Sgot) [facility] L ab (Internal) : [address] t 07/25/2021 CBC W/ Auto Diff BLD ? Wbc 7.6 5.0-10.0 F inal [place] 10*3/uL 10*3/uL [facility] L ab (Internal) : [address] t ? ? BLD ? Rbc 4.19 4.10-5.30 Final [place] 10*6/uL 10*6/uL [facility] L ab (Internal) : [address] t ? ? BLD ? Hgb 12.7 12.0-16.0 Final [place] g/dL g/dL [facility] L ab (Internal) : [address] t ? ? BLD Low Hct 36.5 % 37.0-47.0 Final [place] % [facility] L ab (Internal) : [address] ? ? BLD ? Mcv 87.1 fL 80.0-96.0 Final [place] fL [facility] L ab (Internal) : [address] ? ? BLD ? Mch 30.3 pg 26.0-32.0 Final [place] pg [facility] L ab (Internal) : [address] t ? ? BLD ? Mchc 34.8 31.0-35.0 Final [place] g/dL g/dL [facility] L ab (Internal) : [address] ? ? BLD ? Rdw 13.0 % 11.5-14.5 Final [facility] L ab (Internal) : [address] ? ? BLD ? Plt 261 130-450 Final [place] 10*3/uL 10*3/uL [facility] L ab (Internal) : [address] ? ? BLD ? Anc 5.26 ? Final [place] 10*3/uL [facility] L ab (Internal) : [address] ? ? BLD High Nlr 4.11 0.00-3.20 Final [facility] L ab (Internal) : [address] t ? ? BLD ? Neutro 69.2 % 40.0-75.0 Final [facility] L ab (Internal) : [address] t ? ? BLD Low Lymph 16.8 % 20.0-50.0 Final [facility] L ab (Internal) : [address] t ? ? BLD High [place] 11.3 % 2.0-10.0 Final [facility] L ab (Internal) : [address] t ? ? BLD ? Eos 2.1 % 1.0-6.0 % Final [facility] L ab (Internal) : [address] t ? ? BLD ? Baso 0.3 % 0.0-1.0 % Final [facility] L ab (Internal) : [address] t ? ? BLD ? Ig 0.3 % 0.0-0.9 % Final [facility] L ab (Internal) : [address] 07/25/2021 Lipase, Serum or S High Lip 506 U/L 73-393 Fi nal [place] Plasma U/L [facility] L ab (Internal) : [address] 07/25/2021 CMP, Serum or S High g/r 165 74-106 Final [place] Plasma mg/dL mg/dL [facility] L ab (Internal) : [address] t ? ? S Low Bun 3 mg/dL 7-18 Final [place] mg/dL [facility] L [facility] (Internal) : [address] t ? ? S ? Crea 0.7 0.6-1.0 Final [place] mg/dL mg/dL [facility] L [facility] (Internal) : [address] t ? ? S ? Ca 8.5 8.5-10.1 Final [place] mg/dL mg/dL [facility] L [facility] (Internal) : [address] t ? ? S ? Na 136 136-145 Final [place] mmol/L mmol/L [facility] (Internal) : [address] t ? ? S Low K 3.0 3.5-5.1 Final [place] mmol/L mmol/L [facility] L [facility] (Internal) : [address] t ? ? S ? Cl 101 98-107 Final [place] mmol/l mmol/l [facility] L [facility] (Internal) : [address] t ? ? S ? Tco2 30.1 21.0-32.0 Final [place] mmol/L mmol/L [facility] L [facility] (Internal) : [address] t ? ? S Low Tp 5.9 g/dL 6.4-8.2 Final [place] g/dL [facility] L [facility] (Internal) : [address] t ? ? S Low Alb 3.0 g/dL 3.4-5.0 Final [place] g/dL [facility] L [facility] (Internal) : [address] t ? ? S ? Tbil 0.60 0.20-1.00 Final [place] mg/dL mg/dL [facility] L [facility] (Internal) : [address] t ? ? S ? Alp 72 U/L 46-116 Final [place] U/L [facility] (Internal) : [address] t ? ? S ? Alt 29 U/L 14-59 U/L Final [place] (Sgpt) [facility] (Internal) : [address] t ? ? S ? Ast 17 U/L 15-37 U/L Final [place] (Sgot) [facility] (Internal) : [address] t 07/25/2021 CRP, High S High Rcrp 30.59 0.00-3.00 Final [place] Sensitivity, mg/L mg/L Coun try Serum or Plasma H ospital Lab (Internal) : [address] 07/24/2021 Amylase, Serum S ? Rose Mary 62 U/L 25-115 Final [place] or Plasma U/L [facility] L ab (Internal) : [address] 07/24/2021 Lipase, Serum or S High Lip 418 U/L 73-393 Fi nal [place] Plasma U/L [facility] L ab (Internal) : [address] 07/24/2021 Hepatic Function S ? Tbil 0.60 0.20-1.00 Final [place] Panel, Serum mg/dL mg/dL Coun try Hospital L ab (Internal) : [address] t ? ? S High Dbil 0.24 0.00-0.20 Final [place] mg/dL mg/dL [facility] L ab (Internal) : [address] t ? ? S ? Alp 76 U/L 46-116 Final [place] U/L [facility] L ab (Internal) : [address] t ? ? S ? Alt 34 U/L 14-59 U/L Final [place] (Sgpt) [facility] L ab (Internal) : [address] t ? ? S ? Ast 20 U/L 15-37 U/L Final [place] (Sgot) [facility] L ab (Internal) : [address] t ? ? S High Ggt 209 U/L 5-55 U/L Final [facility] Hospital L ab (Internal) : [address] t ? ? S Low Tp 5.9 g/dL 6.4-8.2 Final [place] g/dL [facility] L ab (Internal) : [address] t ? ? S Low Alb 3.1 g/dL 3.4-5.0 Final [place] g/dL [facility] L ab (Internal) : [address] 07/24/2021 CRP, High S High Rcrp 42.32 0.00-3.00 Final [place] Sensitivity, mg/L mg/L Coun try Serum or Plasma H ospital Lab (Internal) : [address] t 03/11/2019 Methylmalonate, S - Methyl 0.11 <=0.40 [facility] QN, Serum or malonic nmol/mL nmol/mL C ountry Plasma Acid, Hospital L ab Qn, S (Internal) : [address] [facility]/11/2019 Homocysteine, - Homocy 10 <=13 Final [place] Moles/volume, steine, mcmol/L (fasting) [facility] Serum Total, mcmol/L Hospital Lab P (Internal) : [address] [facility] 03/11/2019 TSH, Serum or S - Tsh 0.99 0.47-4.68 Fin al [place] Plasma u[IU]/mL u[IU]/mL Countr y Hospital L ab (Internal) : [address] [facility] 03/11/2019 Ferritin, Serum S - Ferr [phone] [facility] or Plasma NG/mL NG/mL [facility] L ab (Internal) : [address] [facility] 03/11/2019 TIBC (Total SERUM - Tibc [phone] Final [place] Iron-binding ug/dL ug/dL Coun try Capacity), Serum Hospital Lab (Internal) : [address] [facility] 03/11/2019 Iron, Serum SERUM - Iron 90 ug/dL 37-170 Final [place] ug/dL [place] [facility] L ab (Internal) : [address] 03/11/2019 Lipid Panel, S High Chol 269 50-200 Final [place] Serum mg/dL mg/dL [facility] L ab (Internal) : [address] ? ? S - Trig 143 10-150 Final [place] mg/dL mg/dL [place] [facility] L ab (Internal) : [address] ? ? S - Hdl 49 mg/dL 40-60 Final [place] mg/dL [facility] L ab (Internal) : [address] ? ? S High Ldl 191 0-130 Final [place] mg/dL mg/dL [facility] L ab (Internal) : [address] 03/11/2019 CMP, Serum or S High g/r 124 74-106 Final [place] Plasma mg/dL mg/dL [facility] L ab (Internal) : [address], [place] ? ? S - Bun 11 mg/dL 7-17 Final [place] mg/dL [facility] L [facility] ([facility]) : [address] t ? ? S - Crea 0.60 0.52-1.04 Final [place] mg/dL mg/dL [facility] L [facility] (Internal) : [address] t ? ? S - Ca 9.6 8.4-10.2 Final [place] mg/dL mg/dL [facility] L [facility] (Internal) : [address] t ? ? S Low Na 130 137-145 Final [place] mmol/L mmol/L [facility] L [facility] (Internal) : [address] t ? ? S - K 3.7 3.5-5.1 Final [place] mmol/L mmol/L [facility] L [facility] (Internal) : [address] t ? ? S Low Cl 95 98-107 Final [place] mmol/L mmol/L [facility] L [facility] (Internal) : [address] t ? ? S - Tco2 23.0 22.0-30.0 Final [place] mmol/L mmol/L [facility] L [facility] (Internal) : [address] t ? ? S - Tp 7.2 g/dL 6.3-8.2 Final [place] g/dL [facility] L [facility] (Internal) : [address] t ? ? S - Alb 4.1 g/dL 3.5-5.0 Final [place] g/dL [facility] (Internal) : [address] t ? ? S - Tbil 0.5 0.2-1.3 Final [place] mg/dL mg/dL [facility] L [facility] (Internal) : [address] t ? ? S - Alp 52 U/L 38-126 Final [place] U/L [facility] (Internal) : [address] ? ? S - Alt 30 U/L 9-52 U/L Final [place] (Sgpt) [facility] L [facility] (Internal) : [address] t ? ? S - Ast 25 U/L 14-36 U/L Final [place] (Sgot) [facility] L [facility] (Internal) : [address] 03/11/2019 CBC W/ Auto Diff BLD - Wbc 9.4 5.0-10.0 F inal [place] 10*3/uL 10*3/uL [facility] L ab (Internal) : [address] ? ? BLD - Rbc 5.13 4.10-5.30 Final [place] 10*6/uL 10*6/uL [facility] L ab (Internal) : [address] ? ? BLD - Hgb 15.4 12.0-16.0 Final [place] g/dL g/dL [facility] L ab (Internal) : [address] [place] ? ? BLD - Hct 43.9 % 37.0-47.0 Final [facility] L ab (Internal) : [address] [place] ? ? BLD - Mcv 85.6 fL 80.0-96.0 Final [facility] L ab (Internal) : [address] ? ? BLD - Mch 30.0 pg 26.0-32.0 Final [facility] L ab (Internal) : [address] t ? ? BLD High Mchc 35.1 31.0-35.0 Final [place] g/dL g/dL [facility] L ab (Internal) : [address] [place] ? ? BLD - Rdw 13.2 % 11.5-14.5 Final [facility] L ab (Internal) : [address] [place] ? ? BLD - Plt 356 130-450 Final [place] 10*3/uL 10*3/uL [facility] L ab (Internal) : [address] [place] ? ? BLD - Anc 6.36 ? Final [place] 10*3/uL [facility] L ab (Internal) : [address] ? ? BLD - Neutro 67.5 % 40.0-75.0 Final [facility] L ab (Internal) : [address] ? ? BLD - Lymph 21.1 % 20.0-50.0 Final [facility] L ab (Internal) : [address] ? ? BLD - [place] 8.9 % 2.0-10.0 Final [facility] L ab (Internal) : [address] ? ? BLD - Eos 1.5 % 1.0-6.0 % Final [facility] L ab (Internal) : [address] ? ? BLD - Baso 0.5 % 0.0-1.0 % Final [facility] L ab (Internal) : [address] ? ? BLD - Ig 0.5 % 0.0-0.9 % Final [facility] L ab (Internal) : [address] 08/30/2018 CBC W/ Auto Diff BLD High Wbc 14.1 5.0-10.0 F inal [place] 10*3/uL 10*3/uL [facility] L ab (Internal) : [address] ? ? BLD Low Rbc 4.00 4.10-5.30 Final [place] 10*6/uL 10*6/uL [facility] L ab (Internal) : [address] ? ? BLD - Hgb 12.5 12.0-16.0 Final [place] g/dL g/dL [facility] L ab (Internal) : [address] ? ? BLD - Hct 37.3 % 37.0-47.0 Final [facility] L ab (Internal) : [address] ? ? BLD - Mcv 93.3 fL 80.0-96.0 Final [facility] L ab (Internal) : [address] ? ? BLD - Mch 31.3 pg 26.0-32.0 Final [place] pg [facility] L ab (Internal) : [address] ? ? BLD - Mchc 33.5 31.0-35.0 Final [place] g/dL g/dL [facility] L ab (Internal) : [address] ? ? BLD - Rdw 13.9 % 11.5-14.5 Final [facility] L ab (Internal) : [address] ? ? BLD - Plt 250 130-450 Final [place] 10*3/uL 10*3/uL [facility] L ab (Internal) : [address] 08/30/2018 BMP, Serum or S High g/r 112 74-106 Final [place] Plasma mg/dL mg/dL [facility] L ab (Internal) : [address] ? ? S Low Bun 4 mg/dL 7-17 Final [place] mg/dL [facility] L ab (Internal) : [address] ? ? S Low Crea 0.50 0.52-1.04 Final [place] mg/dL mg/dL [facility] L ab (Internal) : [address] ? ? S - Ca 8.6 8.4-10.2 Final [place] mg/dL mg/dL [facility] L ab (Internal) : [address] ? ? S Low Na 136 137-145 Final [place] mmol/L mmol/L [facility] L [facility] (Internal) : [address] ? ? S - K 3.6 3.5-5.1 Final [place] mmol/L mmol/L [facility] L ab (Internal) : [address] ? ? S - Cl 103 98-107 Final [place] mmol/L mmol/L [facility] L ab (Internal) : [address] ? ? S - Tco2 28.0 22.0-30.0 Final [place] mmol/L mmol/L [facility] L ab (Internal) : [address] 08/30/2018 Differential, BLD High Polys 83 % 40-75 % Final [facility], Blood Cou [facility] L ab (Internal) : [address] ? ? BLD - Bands 0 % 0-5 % Final [facility] L ab (Internal) : [address] ? ? BLD Low Lymphs 8 % 20-50 % Final [facility] L ab (Internal) : [address] ? ? BLD - [place] 8 % 2-10 % Final [facility] L ab (Internal) : [address] ? ? BLD - Eos 1 % 0-6 % Final [facility] L ab (Internal) : [address] ? ? BLD - Baso 0 % 0-1 % Final [facility] L ab (Internal) : [address], [place] ? ? BLD - Atyp 0 % ? Final [place] Lymph [facility] L ab (Internal) : [address] t ? ? BLD - Plts, adequate adequate Final [place] Est. [facility] L ab (Internal) : [address] t ? ? BLD ABNORM RBC abnormal normal Final [facility] Morphol [facility] L ab (Internal) : [address] t ? ? BLD - [place] occasion ? Final [facility] L ab (Internal) : [address] t ? ? BLD - Polych rare ? Final [facility] L ab (Internal) : [address] t ? ? BLD - Schist rare ? Final [facility] L ab (Internal) : [address] t 08/30/2018 Neutrophil BLD - Anc-ma 11.66 ? Final N orth Count, Absolute nual 10*3/uL [facility] (Anc), Blood Hosp ital Lab (Internal) : [address] 08/30/2018 Gas Panel, BLD - Tco2 30 ? Final No rth Arterial Blood mmol/L Co [facility] L ab (Internal) : [address] t ? ? BLD - Ph 7.39 7.35-7.45 Final [place] [pH] [pH] [facility] L ab (Internal) : [address] t ? ? BLD - Pco2 47 33-47 Final [place] mm[hg] mm[hg] [facility] L ab (Internal) : [address] t ? ? BLD Low Po2 71 80-100 Final [place] mm[hg] mm[hg] [facility] L [facility] (Internal) : [address] t ? ? BLD Low O2 Sat 94 % 95-98 % Final [facility] L ab (Internal) : [address] t ? ? BLD - Base 2.7 ? Final [place] mmol/L [facility] L [facility] (Internal) : [address] t ? ? BLD - Hco3 28.3 ? Final [place] mmol/L [facility] L ab (Internal) : [address] t ? ? BLD - Na 139 ? Final [place] (Arteri mmol/L [facility] L ab (Internal) : [address] t ? ? BLD - K 3.5 ? Final [place] (Arteri mmol/L [facility] L ab (Internal) : [address] t ? ? BLD - pO2(A/ 76.50 ? Final [facility] L ab (Internal) : [address] t ? ? BLD - Fio2 100% nrb ? Final [facility] L ab (Internal) : [address] t ? ? BLD - Site right ? Final [facility] L ab (Internal) : [address] t ? ? BLD - Amos positive ? Final [facility] L ab (Internal) : [address] t ? ? BLD - Resp pw ? Final [facility] L ab (Internal) : [address] 08/29/2018 CBC W/ Auto Diff BLD High Wbc 13.4 5.0-10.0 F inal [place] 10*3/uL 10*3/uL [facility] L ab (Internal) : [address] t ? ? BLD Low Rbc 3.87 4.10-5.30 [facility] 10*6/uL 10*6/uL [facility] L ab (Internal) : [address] t ? ? BLD - Hgb 12.1 12.0-16.0 Final [place] g/dL g/dL [facility] L ab (Internal) : [address] t ? ? BLD Low Hct 36.2 % 37.0-47.0 Final [facility] L ab (Internal) : [address] t ? ? BLD - Mcv 93.5 fL 80.0-96.0 Final [facility] L ab (Internal) : [address] t ? ? BLD - Mch 31.3 pg 26.0-32.0 Final [place] pg [facility] L ab (Internal) : [address] t ? ? BLD - Mchc 33.4 31.0-35.0 Final [place] g/dL g/dL [facility] L ab (Internal) : [address] t ? ? BLD - Rdw 13.8 % 11.5-14.5 Final [place] % [facility] L ab (Internal) : [address] ? ? BLD - Plt 245 130-450 Final [place] 10*3/uL 10*3/uL [facility] L ab (Internal) : [address] 08/29/2018 BMP, Serum or S - g/r 90 mg/dL 74-106 Agueda l [place] Plasma mg/dL [facility] (Internal) : [address] ? ? S Low Bun 4 mg/dL 7-17 Final [place] mg/dL [facility] L ab (Internal) : [address] ? ? S Low Crea 0.40 0.52-1.04 Final [place] mg/dL mg/dL [facility] L ab (Internal) : [address] ? ? S - Ca 8.4 8.4-10.2 Final [place] mg/dL mg/dL [facility] L ab (Internal) : [address] ? ? S Low Na 131 137-145 Final [place] mmol/L mmol/L [facility] L ab (Internal) : [address] ? ? S Low K 3.0 3.5-5.1 Final [place] mmol/L mmol/L [facility] L ab (Internal) : [address] ? ? S - Cl 98 98-107 Final [place] mmol/L mmol/L [facility] L [facility] (Internal) : [address] ? ? S - Tco2 28.0 22.0-30.0 Final [place] mmol/L mmol/L [facility] L ab (Internal) : [address] 08/29/2018 Differential, BLD High Polys 87 % 40-75 % Final [place] Manual, Blood Cou ntr Hospital L ab (Internal) : [address] ? ? BLD - Bands 0 % 0-5 % Final [facility] L ab (Internal) : [address] ? ? BLD Low Lymphs 8 % 20-50 % Final [facility] L ab (Internal) : [address] ? ? BLD - [place] 5 % 2-10 % Final [facility] L ab (Internal) : [address] t ? ? BLD - Eos 0 % 0-6 % Final [facility] L ab (Internal) : [address] t ? ? BLD - Baso 0 % 0-1 % Final [facility] L ab (Internal) : [address] t ? ? BLD - Atyp 0 % ? Final [facility] L ab (Internal) : [address] t ? ? BLD - Plts, adequate adequate Final [facility] L ab (Internal) : [address] t ? ? BLD ABNORM RBC abnormal normal Final [facility] L ab (Internal) : [address] t ? ? BLD - [place] occasion ? Final [facility] ([facility]) : [address] t ? ? BLD - Schist rare ? Final [facility] L ab (Internal) : [address] t ? ? BLD - Sphrcy rare ? Final [facility] L ab (Internal) : [address] 08/29/2018 Neutrophil BLD - Anc-ma 11.65 ? Final N orth Count, Absolute nual 10*3/uL [facility] (Anc), Blood Hosp ital Lab (Internal) : [address] 08/28/2018 CBC W/ Auto Diff BLD High Wbc 12.9 5.0-10.0 F inal [place] 10*3/uL 10*3/uL [facility] L ab (Internal) : [address] t ? ? BLD - Rbc 4.30 4.10-5.30 Final [place] 10*6/uL 10*6/uL [facility] L ab (Internal) : [address] t ? ? BLD - Hgb 13.5 12.0-16.0 Final [place] g/dL g/dL [facility] L ab (Internal) : [address] t ? ? BLD - Hct 40.0 % 37.0-47.0 Final [facility] L ab (Internal) : [address] t ? ? BLD - Mcv 93.0 fL 80.0-96.0 Final [place] fL [facility] (Internal) : [address] ? ? BLD - Mch 31.4 pg 26.0-32.0 Final [place] pg [facility] (Internal) : [address] ? ? BLD - Mchc 33.8 31.0-35.0 Final [place] g/dL g/dL [facility] (Internal) : [address] ? ? BLD - Rdw 13.8 % 11.5-14.5 Final [place] % [facility] (Internal) : [address] ? ? BLD - Plt 230 130-450 Final [place] 10*3/uL 10*3/uL [facility] (Internal) : [address] 08/28/2018 BMP, Serum or S - g/r 100 74-106 Final [place] Plasma mg/dL mg/dL [facility] (Internal) : [address] ? ? S Low Bun 6 mg/dL 7-17 Final [place] mg/dL [facility] (Internal) : [address] ? ? S Low Crea 0.40 0.52-1.04 Final [place] mg/dL mg/dL [facility] (Internal) : [address] ? ? S - Ca 8.7 8.4-10.2 Final [place] mg/dL mg/dL [facility] (Internal) : [address] ? ? S Low Na 132 137-145 Final [place] mmol/L mmol/L [facility] (Internal) : [address] ? ? S - K 3.7 3.5-5.1 Final [place] mmol/L mmol/L [facility] (Internal) : [address] ? ? S Low Cl 97 98-107 Final [place] mmol/L mmol/L [facility] (Internal) : [address] ? ? S - Tco2 29.0 22.0-30.0 Final [place] mmol/L mmol/L [facility] (Internal) : [address] 08/28/2018 Differential, BLD High Polys 80 % 40-75 % Final [facility], Blood Cou [facility] Hospital L ab (Internal) : [address] t ? ? BLD - Bands 0 % 0-5 % Final [facility] L ab (Internal) : [address] t ? ? BLD Low Lymphs 10 % 20-50 % Final [facility] ab (Internal) : [address] t ? ? BLD - [place] 8 % 2-10 % Final [facility] ab (Internal) : [address] t ? ? BLD - Eos 2 % 0-6 % Final [facility] ab (Internal) : [address] t ? ? BLD - Baso 0 % 0-1 % Final [facility] ab (Internal) : [address] t ? ? BLD - Atyp 0 % ? Final [facility] ab (Internal) : [address] t ? ? BLD - Plts, adequate adequate Final [facility] ab (Internal) : [address] t ? ? BLD ABNORM RBC abnormal normal Final [facility] ab (Internal) : [address] t ? ? BLD - [place] occasion ? Final [facility] ab (Internal) : [address] t ? ? BLD - Schist rare ? Final [facility] ab (Internal) : [address] 08/28/2018 Neutrophil BLD - Anc-ma 10.28 ? Final N orth Count, Absolute nual 10*3/uL [facility] (Anc), Blood Hosp ital Lab (Internal) : [address] 08/27/2018 CMP, Serum or S - g/r 104 74-106 Final [place] Plasma mg/dL mg/dL [facility] L ab (Internal) : [address] t ? ? S - Bun 7 mg/dL 7-17 Final [place] mg/dL [facility] L ab (Internal) : [address] ? ? S Low Crea 0.50 0.52-1.04 Final [place] mg/dL mg/dL [facility] L ab (Internal) : [address] ? ? S - Ca 9.4 8.4-10.2 Final [place] mg/dL mg/dL [facility] (Internal) : [address] t ? ? S Low Na 132 137-145 Final [place] mmol/L mmol/L [facility] L [facility] (Internal) : [address] ? ? S - K 3.8 3.5-5.1 Final [place] mmol/L mmol/L [facility] (Internal) : [address] t ? ? S Low Cl 97 98-107 Final [place] mmol/L mmol/L [facility] (Internal) : [address] t ? ? S - Tco2 25.0 22.0-30.0 Final [place] mmol/L mmol/L [facility] (Internal) : [address] t ? ? S - Tp 7.7 g/dL 6.3-8.2 Final [place] g/dL [facility] (Internal) : [address] t ? ? S - Alb 4.8 g/dL 3.5-5.0 Final [place] g/dL [facility] (Internal) : [address] ? ? S - Tbil 1.0 0.2-1.3 Final [place] mg/dL mg/dL [facility] (Internal) : [address] t ? ? S - Alp 44 U/L 38-126 Final [place] U/L [facility] (Internal) : [address] t ? ? S - Alt 22 U/L 9-52 U/L Final [place] (Sgpt) [facility] (Internal) : [address] t ? ? S - Ast 36 U/L 14-36 U/L Final [place] (Sgot) [facility] (Internal) : [address] 08/27/2018 CBC W/ Auto Diff BLD High Wbc 13.6 5.0-10.0 F inal [place] 10*3/uL 10*3/uL [facility] (Internal) : [address] ? ? BLD - Rbc 4.97 4.10-5.30 Final [place] 10*6/uL 10*6/uL [facility] L ab (Internal) : [address] ? ? BLD - Hgb 15.6 12.0-16.0 Final [place] g/dL g/dL [facility] L ab (Internal) : [address] ? ? BLD - Hct 44.4 % 37.0-47.0 Final [facility] L ab (Internal) : [address] ? ? BLD - Mcv 89.3 fL 80.0-96.0 Final [place] fL [facility] L ab (Internal) : [address] ? ? BLD - Mch 31.4 pg 26.0-32.0 Final [place] pg [facility] L ab (Internal) : [address] ? ? BLD High Mchc 35.1 31.0-35.0 Final [place] g/dL g/dL [facility] L ab (Internal) : [address] ? ? BLD - Rdw 13.7 % 11.5-14.5 Final [facility] L ab (Internal) : [address] ? ? BLD - Plt 300 130-450 Final [place] 10*3/uL 10*3/uL [facility] L ab (Internal) : [address] ? ? BLD - Anc 9.98 ? Final [place] 10*3/uL [facility] L ab (Internal) : [address] ? ? BLD - Neutro 75.0 % 40.0-75.0 Final [facility] L ab (Internal) : [address] ? ? BLD Low Lymph 14.9 % 20.0-50.0 Final [facility] L ab (Internal) : [address] ? ? BLD - [place] 8.5 % 2.0-10.0 Final [facility] L ab (Internal) : [address] ? ? BLD - Eos 1.0 % 1.0-6.0 % Final [facility] L ab (Internal) : [address] ? ? BLD - Baso 0.2 % 0.0-1.0 % Final [facility] L ab (Internal) : [address] ? ? BLD - Ig 0.4 % 0.0-0.9 % Final [facility] L ab (Internal) : [address] 08/27/2018 Troponin I, S - Trop <0.06 0.00-0.06 Final [place] Serum or Plasma NG/mL NG/mL [facility] L ab (Internal) : [address] 08/27/2018 BNP (B-type S - Nt-pro 82 pg/mL 0-125 Final [place] Natriuretic bnp pg/mL Count ry Peptide), Hospita l Lab Prohormone (Inter nal): N-terminal, [address], [place] Immunoassay, Blood 08/26/2018 CBC W/ Auto Diff BLD - Wbc 9.2 5.0-10.0 F inal [place] 10*3/uL 10*3/uL [facility] L ab (Internal) : [address] ? ? BLD - Rbc 4.84 4.10-5.30 Final [place] 10*6/uL 10*6/uL [facility] L ab (Internal) : [address] ? ? BLD - Hgb 15.2 12.0-16.0 Final [place] g/dL g/dL [facility] L ab (Internal) : [address] ? ? BLD - Hct 42.7 % 37.0-47.0 Final [facility] L ab (Internal) : [address] ? ? BLD - Mcv 88.2 fL 80.0-96.0 Final [facility] L ab (Internal) : [address] ? ? BLD - Mch 31.4 pg 26.0-32.0 Final [place] pg [facility] L ab (Internal) : [address] ? ? BLD High Mchc 35.6 31.0-35.0 Final [place] g/dL g/dL [facility] L ab (Internal) : [address] ? ? BLD - Rdw 13.2 % 11.5-14.5 Final [facility] L ab (Internal) : [address] t ? ? BLD - Plt 281 130-450 Final [place] 10*3/uL 10*3/uL [facility] L ab (Internal) : [address] t ? ? BLD - Anc 6.17 ? Final [place] 10*3/uL [facility] L ab (Internal) : [address] t ? ? BLD - Neutro 67.0 % 40.0-75.0 Final [facility] L ab (Internal) : [address] t ? ? BLD - Lymph 20.2 % 20.0-50.0 Final [facility] L ab (Internal) : [address] t ? ? BLD - [place] 9.0 % 2.0-10.0 Final [facility] L ab (Internal) : [address] t ? ? BLD - Eos 2.8 % 1.0-6.0 % Final [facility] L ab (Internal) : [address] t ? ? BLD - Baso 0.5 % 0.0-1.0 % Final [facility] L ab (Internal) : [address] t ? ? BLD - Ig 0.5 % 0.0-0.9 % Final [facility] L ab (Internal) : [address] t 08/26/2018 Partial BLD - APTT 25 s 22-35 s Final Nort [place] Thromboplastin (Op) Co [facility] L ab (Internal) : [address] t 08/26/2018 Prothrombin Time BLD - Pt 9.8 S 9.1-11.7 F inal [facility] L ab (Internal) : [address] t ? ? BLD - Inr 1.0 ? Final [facility] L ab (Internal) : [address] t 08/26/2018 CMP, Serum or S - g/r 98 mg/dL 74-106 Ag[place]a l [place] Plasma mg/dL [facility] L ab (Internal) : [address] t ? ? S - Bun 11 mg/dL 7-17 Final [place] mg/dL [facility] L ab (Internal) : [address] t ? ? S - Crea 0.60 0.52-1.04 Final [place] mg/dL mg/dL [facility] (Internal) : [address] ? ? S - Ca 9.4 8.4-10.2 Final [place] mg/dL mg/dL [facility] (Internal) : [address] t ? ? S Low Na 128 137-145 Final [place] mmol/L mmol/L [facility] (Internal) : [address] t ? ? S Low K 3.1 3.5-5.1 Final [place] mmol/L mmol/L [facility] (Internal) : [address] t ? ? S Low Cl 93 98-107 Final [place] mmol/L mmol/L [facility] (Internal) : [address] t ? ? S - Tco2 25.0 22.0-30.0 Final [place] mmol/L mmol/L [facility] (Internal) : [address] t ? ? S - Tp 7.0 g/dL 6.3-8.2 Final [place] g/dL [facility] (Internal) : [address] ? ? S - Alb 4.3 g/dL 3.5-5.0 Final [place] g/dL [facility] (Internal) : [address] ? ? S - Tbil 0.7 0.2-1.3 Final [place] mg/dL mg/dL [facility] (Internal) : [address] t ? ? S - Alp 53 U/L 38-126 Final [place] U/L [facility] L [facility] (Internal) : [address] t ? ? S - Alt 37 U/L 9-52 U/L Final [place] (Sgpt) [facility] L [facility] (Internal) : [address] t ? ? S High Ast 41 U/L 14-36 U/L Final [place] (Sgot) [facility] L [facility] (Internal) : [address] t 08/26/2018 Troponin I, S - Trop <0.06 0.00-0.06 Final [place] Serum or Plasma NG/mL NG/mL [facility] L ab (Internal) : [address] 08/26/2018 Ethanol, Blood S - Alc <10.0 0.0-9.9 Agueda l [place] mg/dL (rule [place] override) Hospita l Lab mg/dL (Internal) : [address] 08/02/2018 TIBC (Total SERUM - Tibc 337 265-497 Final [place] Iron-binding ug/dL ug/dL Coun try Capacity), Serum Hospital Lab (Internal) : [address] [facility] 08/02/2018 Iron, Serum SERUM - Iron 81 ug/dL 37-170 Final [place] ug/dL [facility] L ab (Internal) : [address] [facility] 08/02/2018 TSH, Serum or S - Tsh 0.99 0.47-4.68 Fin al [place] Plasma u[IU]/mL u[IU]/mL [facility] L ab (Internal) : [address] [facility] 08/02/2018 Ferritin, Serum S - Ferr 228 11-264 Agueda l [place] or Plasma NG/mL NG/mL [facility] L ab (Internal) : [address] [facility] 08/[facility]2018 Lipid Panel, S High Chol 212 50-200 Final [place] Serum mg/dL mg/dL [facility] L ab (Internal) : [address] ? ? S High Trig 220 10-150 Final [place] mg/dL mg/dL [facility] L ab (Internal) : [address] ? ? S - Hdl 51 mg/dL 40-60 Final [place] mg/dL [facility] L ab (Internal) : [address] ? ? S - Ldl 117 0-130 Final [place] mg/dL mg/dL [facility] L ab (Internal) : [address] 05/23/2018 BMP, Serum or S High g/r 107 74-106 Final [place] Plasma mg/dL mg/dL [facility] L ab (Internal) : [address] ? ? S - Bun 17 mg/dL 7-17 Final [place] mg/dL [facility] L ab (Internal) : [address] ? ? S - Crea 0.70 0.52-1.04 Final [place] mg/dL mg/dL [facility] L ab (Internal) : [address] ? ? S - Ca 9.7 8.4-10.2 Final [place] mg/dL mg/dL [facility] L ab (Internal) : [address] ? ? S - Na 137 137-145 Final [place] mmol/L mmol/L [facility] L ab (Internal) : [address] ? ? S - K 3.9 3.5-5.1 Final [place] mmol/L mmol/L [facility] L ab (Internal) : [address] ? ? S - Cl 99 98-107 Final [place] mmol/L mmol/L [facility] L ab (Internal) : [address] ? ? S - Tco2 27.0 22.0-30.0 Final [place] mmol/L mmol/L [facility] L ab (Internal) : [address] 05/15/2018 Troponin I, S - Trop <0.06 0.00-0.06 Final [place] Serum or Plasma NG/mL NG/mL [facility] L ab (Internal) : [address] 05/15/2018 ESR (Erythrocyte BLD - Esr 3 mm/h 0-30 mm/h Final [place] Sedimentation Cou ntry Rate), Blood Hosp ital Lab (Internal) : [address] 01/16/2018 Pap Test, MISC - Hpv see ? Final th Thinprep, report [facility] Cervical Hospital Lab (Internal) : [address] ? ? MISC - Pap see ? Final [place] report [facility] L ab (Internal) : [address] ? ? MISC - Report (added) ? Corrected [place] results [facility] L ab (Internal) : [address] 06/22/2017 Venipuncture BLD ? Venpn* ? ? Final [facility] L ab (Internal) : [address] 06/22/2017 Mononucleosis, BLD ? [place] negative negative F inal [place] Heterophile Ab, C [facility] L ab (Internal) : [address] 06/22/2017 Influenza (A+B) NASAL ? Final microbio ? Fi nal [place] Ag, Qual, Rapid, [facility] Nose results Hospital Lab (Internal) : [address] 06/22/2017 Streptococcus THRT ? Final microbio ? Agueda l [place] [facility] a, logy [facility] Culture, Throat results Hospital Lab (Internal) : [address] 03/14/2017 Venipuncture BLD ? Venpn* ? ? Final [facility] L ab (Internal) : [address] 03/14/2017 Urinalysis, UR ? UA-col pale pale Final [facility] or yellow yellow [facility] L ab (Internal) : [address] [place] ? ? UR ? UA-jennifer clear clear Final [place] ear [facility] L ab (Internal) : [address] ? ? UR ? UA-spe <=1.005 1.003-1.0 Final [facility] Grav 35 [facility] Hospital L ab (Internal) : [address] [place] ? ? UR ? UA-pH 6.0 [pH] 4.6-8.0 Final [place] [pH] [facility] L ab (Internal) : [address] [place] ? ? UR ? UA-nic negative negative Final [place] k [facility] L ab (Internal) : [address] [place] ? ? UR ? UA-nit negative negative [facility] (Internal) : [address] [place] ? ? UR ? UA-pro negative negative Final [facility] L ab (Internal) : [address] [place] ? ? UR ? UA-glu negative negative Final [place] c [facility] L ab (Internal) : [address] [place] ? ? UR ? UA-ket negative negative Final [facility] L ab (Internal) : [address] [place] ? ? UR ? UA-uro normal normal Final [place] familia [facility] L ab (Internal) : [address] [place] ? ? UR ? UA-familia negative negative Final [place] i [facility] L ab (Internal) : [address] ? ? UR ABNORM UA-blo small negative Final [place] AL od [facility] L ab (Internal) : [address] ? ? UR ? UA-WBC 0-3 0-3 [hpf] Final [place] [hpf] [facility] ([facility] : [address] ? ? UR ? UA-RBC 0-2 0-2 [hpf] Final [place] [hpf] [facility] (Internal) : [address] ? ? UR ? UA-landry none none seen Final [place] teria seen [hpf] [facility] L [facility] (Internal) : [address] ? ? UR ABNORM UA-epi few none seen Final [place] AL thelial [hpf] [hpf] [facility] L [facility] (Internal) : [address] ? ? UR ? UA-muc none none seen Final [place] us seen [hpf] [facility] L [facility] (Internal) : [address] 03/14/2017 CMP, Serum or S ? g/r 98 mg/dL 74-106 Agueda l [place] Plasma mg/dL [facility] L [facility] (Internal) : [address] ? ? S ? Bun 13 mg/dL 7-17 Final [place] mg/dL [facility] (Internal) : [address] ? ? S ? Crea 0.80 0.52-1.04 Final [place] mg/dL mg/dL [facility] L [facility] (Internal) : [address] ? ? S ? Ca 9.6 8.4-10.2 Final [place] mg/dL mg/dL [facility] L [facility] (Internal) : [address] ? ? S ? Na 137 137-145 Final [place] mmol/L mmol/L [facility] L [facility] (Internal) : [address] ? ? S ? K 4.3 3.5-5.1 Final [place] mmol/L mmol/L [facility] (Internal) : [address] ? ? S ? Cl 101 98-107 Final [place] mmol/L mmol/L [facility] L [facility] (Internal) : [address] ? ? S ? Tco2 26.0 22.0-30.0 Final [place] mmol/L mmol/L [facility] L [facility] (Internal) : [address] ? ? S ? Tp 7.2 g/dL 6.3-8.2 Final [place] g/dL [facility] L ab (Internal) : [address] ? ? S ? Alb 4.5 g/dL 3.5-5.0 Final [place] g/dL [facility] L ab (Internal) : [address] ? ? S ? Tbil 0.6 0.2-1.3 Final [place] mg/dL mg/dL [facility] L ab (Internal) : [address] ? ? S ? Alp 46 U/L 38-126 Final [place] U/L [facility] L ab (Internal) : [address] ? ? S High Alt 53 U/L 9-52 U/L Final [place] (Sgpt) [facility] L ab (Internal) : [address] ? ? S High Ast 44 U/L 14-36 U/L Final [place] (Sgot) [facility] L ab (Internal) : [address] 03/14/2017 CBC W/ Auto Diff BLD High Wbc 16.3 5.0-10.0 F inal [place] 10*3/uL 10*3/uL [facility] L [facility] (Internal) : [address] ? ? BLD ? Rbc 5.09 4.10-5.30 Final [place] 10*6/uL 10*6/uL [facility] L ab (Internal) : [address] ? ? BLD ? Hgb 16.0 12.0-16.0 Final [place] g/dL g/dL [facility] L ab (Internal) : [address] ? ? BLD ? Hct 46.5 % 37.0-47.0 Final [place] % [facility] L ab (Internal) : [address] ? ? BLD ? Mcv 91.4 fL 80.0-96.0 Final [place] fL [facility] L ab (Internal) : [address] ? ? BLD ? Mch 31.4 pg 26.0-32.0 Final [place] pg [facility] L ab (Internal) : [address] ? ? BLD ? Mchc 34.4 31.0-35.0 Final [place] g/dL g/dL [facility] L ab (Internal) : [address] [place] ? ? BLD ? Rdw 14.1 % 11.5-14.5 Final [facility] L ab (Internal) : [address] [place] ? ? BLD ? Plt 331 130-450 Final [place] 10*3/uL 10*3/uL [facility] L ab (Internal) : [address] [place] ? ? BLD ? Anc 11.74 ? Final [place] 10*3/uL [facility] L ab (Internal) : [address] [place] ? ? BLD ? Neutro 72.2 % 40.0-75.0 Final [facility] L ab (Internal) : [address] [place] ? ? BLD Low Lymph 17.2 % 20.0-50.0 Final [facility] L ab (Internal) : [address] [place] ? ? BLD ? [place] 8.6 % 2.0-10.0 Final [facility] L ab (Internal) : [address] [place] ? ? BLD ? Eos 1.1 % 1.0-6.0 % Final [facility] L ab (Internal) : [address] [place] ? ? BLD ? Baso 0.2 % 0.0-1.0 % Final [facility] L ab (Internal) : [address] [place] ? ? BLD ? Ig 0.7 % 0.0-0.9 % Final [facility] ab (Internal) : [address] Past Encounters None recorded. Social History Tobacco Smoking Status Current Every Day Smoker Vaccine List Vaccine Type COVID-19, mRNA, LNP-S, PF, 100 mcg/0.5 m L dose (Moderna) 07/02/2020?0.5 mL 08/07/2020?0.5 mL influenza, seasonal, injectable, preserv ative free 12/31/2009?0.5 mL 11/16/2010?0.5 mL 03/26/2012?0.5 mL Tdap 10/15/2007 Plan of Care Reminders Provider Appointments None recorded. ? ? Lab None recorded. ? ? Referral None recorded. ? ? Procedures None recorded. ? ? Surgeries None recorded. ? ? Imaging None recorded. ? ? Vitals 04/23/2019 Blood Pressure 124/92 mm[Hg] 01/16/2018 09:20AM New Patient 30 Height Weight BMI Blood Pressure 165.1 cm 73.03 kg 26.8 kg/m2 128/78 mm[Hg] 08/01/2014 Height Weight 165.1 cm 80.74 kg 04/08/2014 Height Weight Blood Pressure 162.56 cm 77.11 kg 120/80 mm[Hg] 11/14/2012 Height Weight Blood Pressure 162.56 cm 66.04 kg 139/81 mm[Hg] 07/11/2012 Height Weight Blood Pressure 162.56 cm 71.44 kg 130/80 mm[Hg] 07/04/2012 Height Weight Blood Pressure 162.56 cm 71.44 kg 122/72 mm[Hg] 06/21/2012 Height Weight Blood Pressure 162.56 cm 70.76 kg 132/82 mm[Hg] 06/11/2012 Weight Blood Pressure 70.31 kg 130/80 mm[Hg] 06/04/2012 Weight Blood Pressure 70.31 kg 118/72 mm[Hg] 05/22/2012 Weight Blood Pressure 70.76 kg 122/70 mm[Hg] 04/19/2012 Height Weight 162.56 cm 69.85 kg 04/11/2012 Height Weight Blood Pressure 162.56 cm 69.85 kg 144/77 mm[Hg] 03/26/2012 Weight Blood Pressure 66.22 kg 140/80 mm[Hg] 01/12/2012 Height Weight Blood Pressure 163.83 cm 68.49 kg 134/72 mm[Hg] 11/16/2011 Height Weight Blood Pressure 163.83 cm 68.49 kg 140/82 mm[Hg] 10/11/2011 Weight Blood Pressure 68.04 kg 110/70 mm[Hg] 09/22/2011 Weight Blood Pressure 68.04 kg 110/70 mm[Hg] 08/11/2011 Height Weight Blood Pressure 163.1 cm 67.2 kg 110/64 mm[Hg] 07/25/2011 Height Weight Blood Pressure 163.1 cm 67.2 kg 115/64 mm[Hg] 06/10/2011 Height Weight Blood Pressure 162.56 cm 68.49 kg 120/66 mm[Hg] 06/09/2011 Height Weight Blood Pressure 162.56 cm 68.49 kg 136/83 mm[Hg] 06/03/2011 Blood Pressure 132/80 mm[Hg] 05/11/2011 Weight Blood Pressure 65.77 kg 120/60 mm[Hg] 04/25/2011 Weight Blood Pressure 65.77 kg 132/96 mm[Hg] 03/23/2011 Weight Blood Pressure 65.32 kg 156/90 mm[Hg] 03/17/2011 Height Weight Blood Pressure 167.64 cm 65.77 kg (1) 142/90 mm[Hg] (2) 140/68 mm[Hg] 03/08/2011 Height Weight Blood Pressure 167.64 cm 64.86 kg 130/80 mm[Hg] 03/01/2011 Height Weight Blood Pressure 167.64 cm 64.86 kg 146/84 mm[Hg] 02/16/2011 Height Weight Blood Pressure 167.64 cm 71.67 kg 110/60 mm[Hg] 01/18/2011 Height Weight 167.64 cm 71.67 kg 12/14/2010 Weight Blood Pressure 67.59 kg 130/70 mm[Hg] 11/16/2010 Weight Blood Pressure 69.85 kg 120/70 mm[Hg] 09/14/2010 Height Weight Blood Pressure 167.64 cm 67.13 kg 120/76 mm[Hg] 08/26/2010 Height Weight Blood Pressure 167.64 cm 67.13 kg 126/76 mm[Hg] 08/17/2010 Weight Blood Pressure 67.59 kg 110/60 mm[Hg] 05/19/2010 Height Weight Blood Pressure 167.64 cm 71.21 kg 140/80 mm[Hg] 04/06/2010 Height Weight Blood Pressure 167.64 cm 72.12 kg 140/80 mm[Hg] 12/31/2009 Weight Blood Pressure 72.12 kg 122/70 mm[Hg] 10/27/2009 Height Weight Blood Pressure 167.64 cm 76.66 kg 110/70 mm[Hg] 07/02/2009 Weight Blood Pressure 77.11 kg 120/80 mm[Hg] 06/15/2009 Blood Pressure 130/72 mm[Hg] 05/19/2009 Blood Pressure 130/64 mm[Hg] 04/07/2009 Blood Pressure 122/78 mm[Hg] 03/09/2009 Weight Blood Pressure 75.3 kg 118/72 mm[Hg] 09/23/2008 Weight Blood Pressure 73.48 kg 112/64 mm[Hg] 07/28/2008 Weight Blood Pressure 70.31 kg 102/56 mm[Hg] 06/13/2008 Weight Blood Pressure 68.04 kg 120/78 mm[Hg] 05/07/2008 Height Weight Blood Pressure 167.64 cm 70.76 kg 126/72 mm[Hg] 01/25/2008 Blood Pressure 104/70 mm[Hg] 12/07/2007 Weight Blood Pressure 66.68 kg 126/80 mm[Hg] 10/31/2007 Weight Blood Pressure 68.04 kg 104/70 mm[Hg] 10/15/2007 Weight Blood Pressure 67.13 kg 100/66 mm[Hg] 09/04/2007 Weight Blood Pressure 66.68 kg 118/72 mm[Hg] 08/29/2007 Weight Blood Pressure 68.95 kg 124/72 mm[Hg] 08/17/2007 Weight Blood Pressure 67.36 kg 130/78 mm[Hg] 08/06/2007 Weight Blood Pressure 69.4 kg 124/76 mm[Hg] 05/23/2007 Weight Blood Pressure 69.4 kg 118/64 mm[Hg] 04/11/2007 Weight Blood Pressure 63.96 kg 118/70 mm[Hg] 02/26/2007 Weight Blood Pressure 68.04 kg 114/70 mm[Hg] 01/03/2007 Weight Blood Pressure 68.49 kg 120/62 mm[Hg] 12/15/2006 Blood Pressure 114/70 mm[Hg] 12/06/2006 Blood Pressure 128/78 mm[Hg] 11/28/2006 Blood Pressure 160/70 mm[Hg] 11/10/2006 Weight Blood Pressure 68.95 kg 110/52 mm[Hg] 10/19/2006 Weight Blood Pressure 44.23 kg 100/60 mm[Hg] 10/02/2006 Blood Pressure 110/70 mm[Hg] 08/28/2006 Blood Pressure 108/70 mm[Hg] 08/09/2006 Blood Pressure 112/68 mm[Hg] 07/24/2006 Blood Pressure 108/78 mm[Hg] 06/05/2006 Weight Blood Pressure 69.85 kg 132/76 mm[Hg] 05/05/2006 Weight Blood Pressure 71.67 kg 110/70 mm[Hg] 03/31/2006 Weight Blood Pressure 73.03 kg 116/72 mm[Hg] 12/02/2005 Weight Blood Pressure 68.04 kg 130/80 mm[Hg] 08/29/2005 Weight Blood Pressure 68.49 kg 121/76 mm[Hg] 08/19/2005 Weight Blood Pressure 69.4 kg 148/90 mm[Hg] 04/05/2005 Weight Blood Pressure 72.12 kg 128/90 mm[Hg] 01/31/2005 Height Weight Blood Pressure 162.56 cm 70.31 kg 102/58 mm[Hg]
[2021-09-03 08:43] LABS: Abs Immature Grans 0.03 10^3/uL (0.0-0.06); Absolute Basophil Count 0.02 10^3/uL (0.0-0.2); Absolute Eosinophil Count 0.19 10^3/uL (0.0-0.7); Absolute Monocyte Count 0.97 10^3/uL (0.1-0.8); Absolute Neutrophil Count 5.24 10^3/uL (1.2-6.7); Basophils % 0.3; Eosinophils % 2.5; HCT 29.4 % (36.0-46.0); HGB 9.9 g/dL (11.2-15.7); Immature Grans % 0.4; Lymphocytes % 14.6; MCHC 33.7 % (32.0-36.0); MCV 86 fL (80-95); Monocytes % 12.8; Neutrophils % 69.4; Platelet Count 235 10^3/uL (130-400); RBC 3.41 10^6/uL (3.93-5.22); RDW 13.2 % (11.7-14.6); RDW-SD 41.5 fL; WBC 7.55 10^3/uL (4.4-10.8)
[2021-09-03] MEDS: Normal Saline Flush 10 ML SYR IVP (08:53)
[2021-09-03 08:58] LABS: ALT 128 U/L (14-59); AST 113 U/L (15-37); Albumin 3.2 g/dL (3.4-5.0); Alkaline Phosphatase 201 U/L (46-116); Anion Gap 9.6 mmol/L (3-11); BUN 11 mg/dL (7-18); CO2 24.4 mmol/L (21.0-32.0); CREATININE 0.9 mg/dL (0.55-1.02); Calcium 8.7 mg/dL (8.5-10.1); Chloride 97 mmol/L (98-107); Glucose 190 mg/dL (74-106); Potassium 3.4 mmol/L (3.5-5.1); Sodium 131 mmol/L (136-145)
[2021-09-05 15:19] VITALS: BP 119/64; PULSE 72; RESP 16; TEMP 35.7; O2SAT 98
[2021-09-05] MEDS: Normal Saline Flush 10 ML SYR IVP (15:19)
[2021-09-05] MEDS: Heparin 500 UNITS/5 ML SYRINGE IV (15:19)
[2021-09-06 13:21] LABS: CA 19-9 22831 U/mL (<35)
[2021-09-10 14:33] LABS: Abs Immature Grans 0.02 10^3/uL (0.0-0.06); Absolute Basophil Count 0.01 10^3/uL (0.0-0.2); Absolute Lymphocyte Count 1.36 10^3/uL (1.2-3.4); Absolute Neutrophil Count 3.87 10^3/uL (1.2-6.7); Basophils % 0.2; Eosinophils % 3.2; HCT 29.6 % (36.0-46.0); HGB 10.3 g/dL (11.2-15.7); Immature Grans % 0.3; Lymphocytes % 21.7; MCH 29.3 pg (27.0-33.0); MCHC 34.8 % (32.0-36.0); MCV 84 fL (80-95); MPV 8.7 fL (8.0-11.0); Monocytes % 12.8; Neutrophils % 61.8; Platelet Count 193 10^3/uL (130-400); RBC 3.51 10^6/uL (3.93-5.22); RDW-SD 39.7 fL; WBC 6.26 10^3/uL (4.4-10.8)
[2021-09-10 14:49] LABS: ALT 45 U/L (14-59); AST 25 U/L (15-37); Alkaline Phosphatase 101 U/L (46-116); Anion Gap 8.7 mmol/L (3-11); BUN 8 mg/dL (7-18); Bilirubin, Total 0.5 mg/dL (0.2-1.0); CO2 27.3 mmol/L (21.0-32.0); CREATININE 0.8 mg/dL (0.55-1.02); Calcium 8.5 mg/dL (8.5-10.1); Chloride 96 mmol/L (98-107); Glucose 278 mg/dL (74-106); Sodium 132 mmol/L (136-145); Total Protein 6.1 g/dL (6.4-8.2)
[2021-09-10 14:53] LABS: Potassium 2.7 mmol/L (3.5-5.1)
== END 2021-09-16 23:59 | disposition home or self-care (01) ==
LOC: INF 14:30
PROVIDERS: Visit Provider Internal Medicine Hematology & Oncology
DX: C25.0 Malignant neoplasm of head of pancreas (principal); Z45.2 Encounter for adjustment and management of vascular access device
CPT/HCPCS: 36591; 80053; 96523; 85025; 86301

== ENCOUNTER 2021-10-17 00:06 | Outpatient (RCR) | payer MEDICARE, MEDICAID, SELFPAY ==
[2021-09-17 00:11] VITALS: BP 119/64; PULSE 72; RESP 16; TEMP 35.7
[2021-09-17] MEDS: Normal Saline Flush 10 ML SYR IVP (08:40)
[2021-09-17 09:26] LABS: Abs Immature Grans 0.03 10^3/uL (0.0-0.06); Absolute Basophil Count 0.02 10^3/uL (0.0-0.2); Absolute Eosinophil Count 0.18 10^3/uL (0.0-0.7); Absolute Lymphocyte Count 1.53 10^3/uL (1.2-3.4); Absolute Monocyte Count 1.06 10^3/uL (0.1-0.8); Basophils % 0.3; Eosinophils % 2.7; HCT 28.8 % (36.0-46.0); Immature Grans % 0.5; Lymphocytes % 23.1; MCH 28.8 pg (27.0-33.0); MCHC 34.7 % (32.0-36.0); MCV 83 fL (80-95); MPV 10.3 fL (8.0-11.0); Neutrophils % 57.4; Platelet Count 204 10^3/uL (130-400); RBC 3.47 10^6/uL (3.93-5.22); RDW-SD 42.9 fL; WBC 6.62 10^3/uL (4.4-10.8)
[2021-09-17 09:43] LABS: ALT 201 U/L (14-59); AST 123 U/L (15-37); Albumin 2.7 g/dL (3.4-5.0); Alkaline Phosphatase 372 U/L (46-116); Anion Gap 8.6 mmol/L (3-11); BUN 8 mg/dL (7-18); Bilirubin, Total 4.9 mg/dL (0.2-1.0); CO2 25.4 mmol/L (21.0-32.0); CREATININE 0.6 mg/dL (0.55-1.02); Calcium 8.8 mg/dL (8.5-10.1); Chloride 98 mmol/L (98-107); Glucose 234 mg/dL (74-106); Potassium 3.7 mmol/L (3.5-5.1); Sodium 132 mmol/L (136-145); Total Protein 5.9 g/dL (6.4-8.2)
[2021-09-24] MEDS: Normal Saline Flush 10 ML SYR IVP (08:58)
[2021-09-24 09:02] LABS: Abs Immature Grans 0.04 10^3/uL (0.0-0.06); Absolute Basophil Count 0.03 10^3/uL (0.0-0.2); Absolute Lymphocyte Count 1.95 10^3/uL (1.2-3.4); Absolute Monocyte Count 0.94 10^3/uL (0.1-0.8); Absolute Neutrophil Count 6.01 10^3/uL (1.2-6.7); Basophils % 0.3; Eosinophils % 3.2; HGB 10.3 g/dL (11.2-15.7); Immature Grans % 0.4; MCH 28.4 pg (27.0-33.0); MCHC 33.2 % (32.0-36.0); MCV 85 fL (80-95); Monocytes % 10.1; Platelet Count 335 10^3/uL (130-400); RBC 3.63 10^6/uL (3.93-5.22); RDW 14.8 % (11.7-14.6); RDW-SD 46.4 fL; WBC 9.27 10^3/uL (4.4-10.8)
[2021-09-24 09:18] LABS: ALT 103 U/L (14-59); AST 46 U/L (15-37); Albumin 2.8 g/dL (3.4-5.0); Alkaline Phosphatase 334 U/L (46-116); Anion Gap 9.7 mmol/L (3-11); BUN 10 mg/dL (7-18); Bilirubin, Total 1.3 mg/dL (0.2-1.0); CO2 25.3 mmol/L (21.0-32.0); CREATININE 0.6 mg/dL (0.55-1.02); Calcium 9.1 mg/dL (8.5-10.1); Chloride 98 mmol/L (98-107); Glucose 238 mg/dL (74-106); Potassium 4.3 mmol/L (3.5-5.1); Sodium 133 mmol/L (136-145); Total Protein 6.5 g/dL (6.4-8.2)
[2021-09-26] MEDS: Normal Saline Flush 10 ML SYR IVP (13:18)
[2021-09-26] MEDS: Heparin 500 UNITS/5 ML SYRINGE IV (13:18)
[2021-10-08] MEDS: Normal Saline Flush 10 ML SYR IVP (08:55)
[2021-10-08 09:05] LABS: Abs Immature Grans 0.01 10^3/uL (0.0-0.06); Absolute Basophil Count 0.01 10^3/uL (0.0-0.2); Absolute Eosinophil Count 0.19 10^3/uL (0.0-0.7); Absolute Lymphocyte Count 1.51 10^3/uL (1.2-3.4); Absolute Monocyte Count 0.72 10^3/uL (0.1-0.8); Absolute Neutrophil Count 3.67 10^3/uL (1.2-6.7); Basophils % 0.2; Eosinophils % 3.1; HCT 29.8 % (36.0-46.0); Immature Grans % 0.2; Lymphocytes % 24.7; MCH 28.2 pg (27.0-33.0); MCHC 33.6 % (32.0-36.0); MCV 84 fL (80-95); Monocytes % 11.8; Platelet Count 151 10^3/uL (130-400); RBC 3.54 10^6/uL (3.93-5.22); WBC 6.11 10^3/uL (4.4-10.8)
[2021-10-08 09:21] LABS: ALT 41 U/L (14-59); AST 26 U/L (15-37); Alkaline Phosphatase 133 U/L (46-116); Anion Gap 8.2 mmol/L (3-11); BUN 8 mg/dL (7-18); Bilirubin, Total 0.6 mg/dL (0.2-1.0); CO2 23.8 mmol/L (21.0-32.0); CREATININE 0.6 mg/dL (0.55-1.02); Chloride 102 mmol/L (98-107); Glucose 143 mg/dL (74-106); Potassium 4.2 mmol/L (3.5-5.1); Sodium 134 mmol/L (136-145); Total Protein 6.2 g/dL (6.4-8.2)
[2021-10-08 12:42] LABS: Lipase 21 U/L (73-393)
[2021-10-11 14:30] LABS: CA 19-9 9565 U/mL (<35)
[2021-10-15] MEDS: Normal Saline Flush 10 ML SYR IVP (08:05)
[2021-10-15 08:12] LABS: Abs Immature Grans 0.01 10^3/uL (0.0-0.06); Absolute Basophil Count 0.02 10^3/uL (0.0-0.2); Absolute Eosinophil Count 0.21 10^3/uL (0.0-0.7); Absolute Lymphocyte Count 1.26 10^3/uL (1.2-3.4); Absolute Monocyte Count 0.62 10^3/uL (0.1-0.8); Absolute Neutrophil Count 2.88 10^3/uL (1.2-6.7); Basophils % 0.4; Eosinophils % 4.2; HCT 29.1 % (36.0-46.0); HGB 9.6 g/dL (11.2-15.7); Immature Grans % 0.2; Lymphocytes % 25.2; MCH 28.2 pg (27.0-33.0); MCV 85 fL (80-95); Monocytes % 12.4; Neutrophils % 57.6; Platelet Count 145 10^3/uL (130-400); RBC 3.41 10^6/uL (3.93-5.22); RDW 16.4 % (11.7-14.6); RDW-SD 50.8 fL
[2021-10-15 08:29] LABS: ALT 38 U/L (14-59); AST 22 U/L (15-37); Albumin 2.7 g/dL (3.4-5.0); Alkaline Phosphatase 107 U/L (46-116); Anion Gap 6.5 mmol/L (3-11); BUN 8 mg/dL (7-18); Bilirubin, Total 0.4 mg/dL (0.2-1.0); CO2 25.5 mmol/L (21.0-32.0); CREATININE 0.5 mg/dL (0.55-1.02); Calcium 8.9 mg/dL (8.5-10.1); Chloride 101 mmol/L (98-107); Glucose 158 mg/dL (74-106); Potassium 4.6 mmol/L (3.5-5.1); Sodium 133 mmol/L (136-145); Total Protein 5.9 g/dL (6.4-8.2)
[2021-10-17] MEDS: Heparin 500 UNITS/5 ML SYRINGE IV (12:20)
[2021-10-17] MEDS: Normal Saline Flush 10 ML SYR IVP (12:20)
[2021-10-17 12:40] VITALS: BP 157/79; PULSE 80; RESP 18; TEMP 35.9; O2SAT 98
[2021-10-18 16:33] LABS: CA 19-9 8022 U/mL (<35)
== END 2021-10-17 23:59 | disposition home or self-care (01) ==
LOC: INF 00:06
PROVIDERS: Visit Provider Internal Medicine Hematology & Oncology
DX: C25.0 Malignant neoplasm of head of pancreas (principal); Z45.2 Encounter for adjustment and management of vascular access device
CPT/HCPCS: 36591; 80053; 83690; 96523; 85025; 86301

== ENCOUNTER 2021-11-14 00:38 | Outpatient (RCR) | payer MEDICARE, MEDICAID, SELFPAY ==
[2021-10-18 00:20] VITALS: BP 157/79; PULSE 80; RESP 18; TEMP 35.9
[2021-10-29] MEDS: Normal Saline Flush 10 ML SYR IVP (07:36)
[2021-10-29 07:43] LABS: Abs Immature Grans 0.02 10^3/uL (0.0-0.06); Absolute Basophil Count 0.02 10^3/uL (0.0-0.2); Absolute Eosinophil Count 0.13 10^3/uL (0.0-0.7); Absolute Lymphocyte Count 1.51 10^3/uL (1.2-3.4); Absolute Monocyte Count 0.83 10^3/uL (0.1-0.8); Basophils % 0.3; Eosinophils % 2.1; HCT 30.7 % (36.0-46.0); HGB 10.2 g/dL (11.2-15.7); Immature Grans % 0.3; Lymphocytes % 24.3; MCH 28.1 pg (27.0-33.0); MCHC 33.2 % (32.0-36.0); MCV 85 fL (80-95); MPV 9.2 fL (8.0-11.0); Monocytes % 13.4; Neutrophils % 59.6; Platelet Count 154 10^3/uL (130-400); RBC 3.63 10^6/uL (3.93-5.22); RDW 16.9 % (11.7-14.6); RDW-SD 52.4 fL; WBC 6.21 10^3/uL (4.4-10.8)
[2021-10-29 07:59] LABS: ALT 30 U/L (14-59); AST 24 U/L (15-37); Alkaline Phosphatase 86 U/L (46-116); Anion Gap 4.9 mmol/L (3-11); BUN 6 mg/dL (7-18); Bilirubin, Total 0.4 mg/dL (0.2-1.0); CO2 29.1 mmol/L (21.0-32.0); CREATININE 0.5 mg/dL (0.55-1.02); Calcium 8.7 mg/dL (8.5-10.1); Chloride 99 mmol/L (98-107); Glucose 183 mg/dL (74-106); Potassium 4.6 mmol/L (3.5-5.1); Sodium 133 mmol/L (136-145)
[2021-10-31 10:15] VITALS: BP 123/71; PULSE 77; RESP 20; TEMP 36.5; O2SAT 99
[2021-10-31] MEDS: Normal Saline Flush 10 ML SYR IVP (10:21)
[2021-10-31] MEDS: Heparin 500 UNITS/5 ML SYRINGE IV (10:22)
[2021-11-01 14:45] LABS: CA 19-9 8647 U/mL (<35)
[2021-11-12] MEDS: Normal Saline Flush 10 ML SYR IVP (07:45)
[2021-11-12 07:57] LABS: Abs Immature Grans 0.02 10^3/uL (0.0-0.06); Absolute Basophil Count 0.04 10^3/uL (0.0-0.2); Absolute Eosinophil Count 0.19 10^3/uL (0.0-0.7); Absolute Lymphocyte Count 1.65 10^3/uL (1.2-3.4); Absolute Monocyte Count 0.82 10^3/uL (0.1-0.8); Absolute Neutrophil Count 4.36 10^3/uL (1.2-6.7); Basophils % 0.6; Eosinophils % 2.7; HCT 31.8 % (36.0-46.0); HGB 10.9 g/dL (11.2-15.7); Immature Grans % 0.3; Lymphocytes % 23.3; MCHC 34.3 % (32.0-36.0); MCV 82 fL (80-95); Monocytes % 11.6; Neutrophils % 61.5; Platelet Count 172 10^3/uL (130-400); RBC 3.89 10^6/uL (3.93-5.22); RDW 16.3 % (11.7-14.6); RDW-SD 48.4 fL; WBC 7.08 10^3/uL (4.4-10.8)
[2021-11-12 08:12] LABS: ALT 28 U/L (14-59); AST 23 U/L (15-37); Albumin 3.2 g/dL (3.4-5.0); Alkaline Phosphatase 73 U/L (46-116); Anion Gap 10.8 mmol/L (3-11); BUN 7 mg/dL (7-18); Bilirubin, Total 0.5 mg/dL (0.2-1.0); CO2 29.2 mmol/L (21.0-32.0); CREATININE 0.4 mg/dL (0.55-1.02); Calcium 9.1 mg/dL (8.5-10.1); Chloride 96 mmol/L (98-107); Glucose 150 mg/dL (74-106); Sodium 136 mmol/L (136-145); Total Protein 6.7 g/dL (6.4-8.2)
[2021-11-12 08:17] LABS: Potassium 2.9 mmol/L (3.5-5.1)
[2021-11-14 10:54] VITALS: BP 114/61; PULSE 79; RESP 20; TEMP 35.8; O2SAT 97
[2021-11-14] MEDS: Normal Saline Flush 10 ML SYR IVP (10:57)
[2021-11-14] MEDS: Heparin 500 UNITS/5 ML SYRINGE IV (10:58)
[2021-11-16 08:24] LABS: CA 19-9 6054 U/mL (<35)
== END 2021-11-17 23:59 | disposition home or self-care (01) ==
LOC: INF 00:38
PROVIDERS: Visit Provider Internal Medicine Hematology & Oncology
DX: C25.0 Malignant neoplasm of head of pancreas (principal); Z45.2 Encounter for adjustment and management of vascular access device
CPT/HCPCS: 36591; 80053; 96523; 85025; 86301

== ENCOUNTER 2021-12-10 00:38 | Outpatient (RCR) | payer MEDICARE, MEDICAID, SELFPAY ==
[2021-11-18 00:20] VITALS: BP 114/61; PULSE 79; RESP 20; TEMP 35.8
[2021-11-26] MEDS: Normal Saline Flush 10 ML SYR IVP (07:42)
[2021-11-26 07:49] LABS: Abs Immature Grans 0.03 10^3/uL (0.0-0.06); Absolute Basophil Count 0.01 10^3/uL (0.0-0.2); Absolute Eosinophil Count 0.15 10^3/uL (0.0-0.7); Absolute Lymphocyte Count 1.52 10^3/uL (1.2-3.4); Absolute Monocyte Count 0.81 10^3/uL (0.1-0.8); Absolute Neutrophil Count 3.87 10^3/uL (1.2-6.7); Basophils % 0.2; Eosinophils % 2.3; HCT 29.7 % (36.0-46.0); Immature Grans % 0.5; Lymphocytes % 23.8; MCH 28.5 pg (27.0-33.0); MCHC 33.7 % (32.0-36.0); MCV 85 fL (80-95); MPV 10.3 fL (8.0-11.0); Monocytes % 12.7; Neutrophils % 60.5; Platelet Count 114 10^3/uL (130-400); RBC 3.51 10^6/uL (3.93-5.22); RDW 18.1 % (11.7-14.6); RDW-SD 55.5 fL; WBC 6.39 10^3/uL (4.4-10.8)
[2021-11-26 08:02] LABS: ALT 27 U/L (14-59); AST 24 U/L (15-37); Albumin 2.8 g/dL (3.4-5.0); Alkaline Phosphatase 76 U/L (46-116); BUN 6 mg/dL (7-18); Bilirubin, Total 0.5 mg/dL (0.2-1.0); CREATININE 0.5 mg/dL (0.55-1.02); Calcium 8.7 mg/dL (8.5-10.1); Chloride 102 mmol/L (98-107); Estimated GFR 104.67 (mL/min/1.73m2); Glucose 135 mg/dL (74-106); Potassium 4.2 mmol/L (3.5-5.1); Sodium 136 mmol/L (136-145)
[2021-11-29 15:33] LABS: CA 19-9 4737 U/mL (<35)
[2021-12-03] MEDS: Normal Saline Flush 10 ML SYR IVP (10:00)
[2021-12-03 10:10] LABS: Abs Immature Grans 0.02 10^3/uL (0.0-0.06); Absolute Basophil Count 0.01 10^3/uL (0.0-0.2); Absolute Eosinophil Count 0.05 10^3/uL (0.0-0.7); Absolute Lymphocyte Count 1.39 10^3/uL (1.2-3.4); Absolute Monocyte Count 0.36 10^3/uL (0.1-0.8); Absolute Neutrophil Count 2.51 10^3/uL (1.2-6.7); Basophils % 0.2; Eosinophils % 1.2; HCT 29.2 % (36.0-46.0); HGB 9.9 g/dL (11.2-15.7); Immature Grans % 0.5; MCH 28.5 pg (27.0-33.0); MCHC 33.9 % (32.0-36.0); MCV 84 fL (80-95); MPV 9.3 fL (8.0-11.0); Monocytes % 8.3; Neutrophils % 57.8; RBC 3.47 10^6/uL (3.93-5.22); RDW 17.2 % (11.7-14.6); RDW-SD 52.7 fL; WBC 4.34 10^3/uL (4.4-10.8)
[2021-12-03 10:18] LABS: Diff Comment PLT Morph Reviewed; Platelet Count 84 10^3/uL (130-400)
[2021-12-03 10:21] LABS: Poikilocytes 1+
[2021-12-03 10:59] LABS: ALT 34 U/L (14-59); AST 28 U/L (15-37); Albumin 2.8 g/dL (3.4-5.0); Alkaline Phosphatase 88 U/L (46-116); Anion Gap 6.7 mmol/L (3-11); BUN 6 mg/dL (7-18); Bilirubin, Total 0.4 mg/dL (0.2-1.0); CO2 26.3 mmol/L (21.0-32.0); CREATININE 0.5 mg/dL (0.55-1.02); Calcium 8.9 mg/dL (8.5-10.1); Chloride 102 mmol/L (98-107); Estimated GFR 104.67 (mL/min/1.73m2); Glucose 166 mg/dL (74-106); Potassium 4.2 mmol/L (3.5-5.1); Sodium 135 mmol/L (136-145); Total Protein 6.1 g/dL (6.4-8.2)
[2021-12-10] MEDS: Normal Saline Flush 10 ML SYR IVP (08:35)
[2021-12-10 08:38] LABS: Abs Immature Grans 0.01 10^3/uL (0.0-0.06); Absolute Basophil Count 0.01 10^3/uL (0.0-0.2); Absolute Lymphocyte Count 1.47 10^3/uL (1.2-3.4); Absolute Monocyte Count 0.68 10^3/uL (0.1-0.8); Absolute Neutrophil Count 2.73 10^3/uL (1.2-6.7); Basophils % 0.2; HCT 30.2 % (36.0-46.0); HGB 9.9 g/dL (11.2-15.7); Immature Grans % 0.2; Lymphocytes % 29.4; MCH 28.4 pg (27.0-33.0); MCHC 32.8 % (32.0-36.0); MCV 87 fL (80-95); MPV 9.5 fL (8.0-11.0); Monocytes % 13.6; Neutrophils % 54.6; Platelet Count 172 10^3/uL (130-400); RBC 3.49 10^6/uL (3.93-5.22); RDW 18.5 % (11.7-14.6)
[2021-12-10 08:51] LABS: ALT 21 U/L (14-59); AST 19 U/L (15-37); Albumin 2.9 g/dL (3.4-5.0); Alkaline Phosphatase 71 U/L (46-116); Anion Gap 7.8 mmol/L (3-11); BUN 6 mg/dL (7-18); Bilirubin, Total 0.5 mg/dL (0.2-1.0); CO2 27.2 mmol/L (21.0-32.0); CREATININE 0.5 mg/dL (0.55-1.02); Calcium 9.1 mg/dL (8.5-10.1); Chloride 102 mmol/L (98-107); Estimated GFR 104.67 (mL/min/1.73m2); Glucose 126 mg/dL (74-106); Potassium 3.9 mmol/L (3.5-5.1); Sodium 137 mmol/L (136-145); Total Protein 5.8 g/dL (6.4-8.2)
[2021-12-13 14:21] LABS: CA 19-9 3281 U/mL (<35)
== END 2021-12-17 23:59 | disposition home or self-care (01) ==
LOC: INF 00:38
PROVIDERS: Visit Provider Internal Medicine Hematology & Oncology
DX: C25.0 Malignant neoplasm of head of pancreas (principal); Z45.2 Encounter for adjustment and management of vascular access device
CPT/HCPCS: 36591; 80053; 85025; 86301

== ENCOUNTER 2022-01-07 01:15 | Outpatient (RCR) | payer MEDICARE, MEDICAID, SELFPAY ==
[2021-12-18 00:22] VITALS: BP 114/61; PULSE 79; RESP 20; TEMP 35.8
[2021-12-24] MEDS: Normal Saline Flush 10 ML SYR IVP (09:02)
[2021-12-24 09:07] LABS: Abs Immature Grans 0.03 10^3/uL (0.0-0.06); Absolute Basophil Count 0.02 10^3/uL (0.0-0.2); Absolute Eosinophil Count 0.05 10^3/uL (0.0-0.7); Absolute Lymphocyte Count 1.57 10^3/uL (1.2-3.4); Absolute Monocyte Count 1.02 10^3/uL (0.1-0.8); Absolute Neutrophil Count 6.53 10^3/uL (1.2-6.7); Basophils % 0.2; Eosinophils % 0.5; HCT 30.9 % (36.0-46.0); HGB 10.5 g/dL (11.2-15.7); Immature Grans % 0.3; MCH 29.5 pg (27.0-33.0); MCV 87 fL (80-95); MPV 8.9 fL (8.0-11.0); Monocytes % 11.1; Neutrophils % 70.9; Platelet Count 194 10^3/uL (130-400); RBC 3.56 10^6/uL (3.93-5.22); RDW 19.4 % (11.7-14.6); RDW-SD 61.6 fL; WBC 9.22 10^3/uL (4.4-10.8)
[2021-12-24 09:28] LABS: ALT 22 U/L (14-59); AST 14 U/L (15-37); Albumin 3.1 g/dL (3.4-5.0); Alkaline Phosphatase 75 U/L (46-116); Anion Gap 8.8 mmol/L (3-11); BUN 5 mg/dL (7-18); Bilirubin, Total 0.5 mg/dL (0.2-1.0); CO2 25.2 mmol/L (21.0-32.0); CREATININE 0.5 mg/dL (0.55-1.02); Calcium 8.7 mg/dL (8.5-10.1); Chloride 100 mmol/L (98-107); Estimated GFR 104.67 (mL/min/1.73m2); Glucose 149 mg/dL (74-106); Potassium 4.1 mmol/L (3.5-5.1); Sodium 134 mmol/L (136-145); Total Protein 5.9 g/dL (6.4-8.2)
[2022-01-07] MEDS: Normal Saline Flush 10 ML SYR IVP (09:13)
[2022-01-07 09:19] LABS: Abs Immature Grans 0.02 10^3/uL (0.0-0.06); Absolute Basophil Count 0.03 10^3/uL (0.0-0.2); Absolute Lymphocyte Count 1.22 10^3/uL (1.2-3.4); Absolute Monocyte Count 0.71 10^3/uL (0.1-0.8); Absolute Neutrophil Count 4.41 10^3/uL (1.2-6.7); Basophils % 0.5; Eosinophils % 1.5; HCT 31.2 % (36.0-46.0); HGB 10.4 g/dL (11.2-15.7); Immature Grans % 0.3; Lymphocytes % 18.8; MCH 29.4 pg (27.0-33.0); MCHC 33.3 % (32.0-36.0); MCV 88 fL (80-95); MPV 9.1 fL (8.0-11.0); Monocytes % 10.9; Platelet Count 243 10^3/uL (130-400); RBC 3.54 10^6/uL (3.93-5.22); RDW 18.8 % (11.7-14.6); WBC 6.49 10^3/uL (4.4-10.8)
[2022-01-07 09:34] LABS: ALT 17 U/L (14-59); AST 12 U/L (15-37); Albumin 3.3 g/dL (3.4-5.0); Alkaline Phosphatase 59 U/L (46-116); Anion Gap 7.7 mmol/L (3-11); BUN 6 mg/dL (7-18); Bilirubin, Total 0.5 mg/dL (0.2-1.0); CO2 27.3 mmol/L (21.0-32.0); CREATININE 0.6 mg/dL (0.55-1.02); Calcium 8.9 mg/dL (8.5-10.1); Chloride 100 mmol/L (98-107); Estimated GFR 99.55 (mL/min/1.73m2); Glucose 143 mg/dL (74-106); Potassium 4.2 mmol/L (3.5-5.1); Sodium 135 mmol/L (136-145); Total Protein 6.1 g/dL (6.4-8.2)
[2022-01-10 14:50] LABS: CA 19-9 1712 U/mL (<35)
== END 2022-01-17 23:59 | disposition home or self-care (01) ==
LOC: INF 01:15
PROVIDERS: Visit Provider Internal Medicine Hematology & Oncology
DX: C25.0 Malignant neoplasm of head of pancreas (principal); Z45.2 Encounter for adjustment and management of vascular access device
CPT/HCPCS: 36591; 80053; 85025; 86301

== ENCOUNTER 2022-02-04 00:58 | Outpatient (RCR) | payer MEDICARE, MEDICAID, SELFPAY ==
[2022-01-18 00:20] VITALS: BP 114/61; PULSE 79; RESP 20; TEMP 35.8
[2022-01-21] MEDS: Normal Saline Flush 10 ML SYR IVP (08:55)
[2022-01-21 09:11] LABS: Abs Immature Grans 0.05 10^3/uL (0.0-0.06); Absolute Basophil Count 0.03 10^3/uL (0.0-0.2); Absolute Eosinophil Count 0.14 10^3/uL (0.0-0.7); Absolute Neutrophil Count 4.94 10^3/uL (1.2-6.7); Basophils % 0.4; Eosinophils % 1.8; HCT 32.8 % (36.0-46.0); HGB 11.2 g/dL (11.2-15.7); Immature Grans % 0.6; Lymphocytes % 21.4; MCHC 34.1 % (32.0-36.0); MCV 88 fL (80-95); Monocytes % 13.8; Platelet Count 242 10^3/uL (130-400); RBC 3.73 10^6/uL (3.93-5.22); RDW 18.6 % (11.7-14.6); RDW-SD 59.8 fL; WBC 7.96 10^3/uL (4.4-10.8)
[2022-01-21 09:26] LABS: ALT 17 U/L (14-59); AST 12 U/L (15-37); Albumin 3.2 g/dL (3.4-5.0); Alkaline Phosphatase 49 U/L (46-116); Anion Gap 6.7 mmol/L (3-11); BUN 6 mg/dL (7-18); Bilirubin, Total 0.4 mg/dL (0.2-1.0); CO2 28.3 mmol/L (21.0-32.0); CREATININE 0.6 mg/dL (0.55-1.02); Calcium 8.8 mg/dL (8.5-10.1); Chloride 102 mmol/L (98-107); Estimated GFR 99.55 (mL/min/1.73m2); Glucose 142 mg/dL (74-106); Potassium 4.1 mmol/L (3.5-5.1); Sodium 137 mmol/L (136-145)
[2022-01-24 08:50] LABS: CA 19-9 697 U/mL (<35)
[2022-02-04] MEDS: Normal Saline Flush 10 ML SYR IVP (08:56)
[2022-02-04 08:57] LABS: Abs Immature Grans 0.05 10^3/uL (0.0-0.06); Absolute Basophil Count 0.03 10^3/uL (0.0-0.2); Absolute Lymphocyte Count 1.47 10^3/uL (1.2-3.4); Absolute Monocyte Count 0.89 10^3/uL (0.1-0.8); Absolute Neutrophil Count 5.16 10^3/uL (1.2-6.7); Basophils % 0.4; Eosinophils % 1.3; HCT 33.9 % (36.0-46.0); HGB 11.5 g/dL (11.2-15.7); Immature Grans % 0.6; Lymphocytes % 19.1; MCHC 33.9 % (32.0-36.0); MCV 89 fL (80-95); MPV 9.3 fL (8.0-11.0); Monocytes % 11.6; Platelet Count 254 10^3/uL (130-400); RBC 3.83 10^6/uL (3.93-5.22); RDW 17.9 % (11.7-14.6); RDW-SD 58.3 fL
[2022-02-04 09:11] LABS: ALT 20 U/L (14-59); AST 16 U/L (15-37); Albumin 3.5 g/dL (3.4-5.0); Alkaline Phosphatase 52 U/L (46-116); Anion Gap 8.1 mmol/L (3-11); BUN 6 mg/dL (7-18); Bilirubin, Total 0.4 mg/dL (0.2-1.0); CO2 26.9 mmol/L (21.0-32.0); CREATININE 0.6 mg/dL (0.55-1.02); Calcium 8.6 mg/dL (8.5-10.1); Chloride 99 mmol/L (98-107); Estimated GFR 99.55 (mL/min/1.73m2); Glucose 131 mg/dL (74-106); Sodium 134 mmol/L (136-145); Total Protein 6.3 g/dL (6.4-8.2)
[2022-02-07 10:22] LABS: CA 19-9 416 U/mL (<35)
== END 2022-02-16 23:59 | disposition home or self-care (01) ==
LOC: INF 00:58
PROVIDERS: Visit Provider Internal Medicine Hematology & Oncology
DX: C25.0 Malignant neoplasm of head of pancreas (principal); Z45.2 Encounter for adjustment and management of vascular access device
CPT/HCPCS: 36591; 80053; 85025; 86301

== ENCOUNTER 2022-05-06 00:22 | Outpatient (RCR) | payer MEDICARE, MEDICAID, SELFPAY ==
[2022-05-06 08:26] LABS: Absolute Basophil Count 0.02 10^3/uL (0.0-0.2); Absolute Eosinophil Count 0.01 10^3/uL (0.0-0.7); Absolute Lymphocyte Count 1.05 10^3/uL (1.2-3.4); Absolute Monocyte Count 0.42 10^3/uL (0.1-0.8); Absolute Neutrophil Count 7.46 10^3/uL (1.2-6.7); Basophils % 0.2; Eosinophils % 0.1; HCT 34.7 % (36.0-46.0); HGB 11.3 g/dL (11.2-15.7); Immature Grans % 1.1; Lymphocytes % 11.6; MCH 27.9 pg (27.0-33.0); MCHC 32.6 % (32.0-36.0); MCV 86 fL (80-95); MPV 8.5 fL (8.0-11.0); Monocytes % 4.6; Neutrophils % 82.4; Platelet Count 350 10^3/uL (130-400); RBC 4.05 10^6/uL (3.93-5.22); RDW-SD 50.4 fL; WBC 9.06 10^3/uL (4.4-10.8)
[2022-05-06 08:46] LABS: ALT 20 U/L (14-59); AST 11 U/L (15-37); Albumin 2.9 g/dL (3.4-5.0); Alkaline Phosphatase 74 U/L (46-116); Anion Gap 9.1 mmol/L (3-11); BUN 9 mg/dL (7-18); Bilirubin, Total 0.3 mg/dL (0.2-1.0); CO2 25.9 mmol/L (21.0-32.0); CREATININE 0.6 mg/dL (0.55-1.02); Chloride 99 mmol/L (98-107); Estimated GFR 99.55 (mL/min/1.73m2); Glucose 216 mg/dL (74-106); Potassium 4.3 mmol/L (3.5-5.1); Sodium 134 mmol/L (136-145)
[2022-05-06] MEDS: Normal Saline Flush 10 ML SYR IVP (09:05)
[2022-05-06] MEDS: Heparin 500 UNITS/5 ML SYRINGE IV (09:05)
[2022-05-09 11:26] LABS: CA 19-9 1524 U/mL (<35)
== END 2022-05-17 23:59 | disposition home or self-care (01) ==
LOC: INF 00:22
PROVIDERS: Visit Provider Internal Medicine Hematology & Oncology
DX: C25.0 Malignant neoplasm of head of pancreas (principal); Z45.2 Encounter for adjustment and management of vascular access device
CPT/HCPCS: 36591; 80053; 85025; 86301

== ENCOUNTER 2022-05-23 12:34 | Emergency (ER) | payer MEDICARE, MEDICAID, SELFPAY ==
[2022-05-23 12:43] VITALS: BP 130/65; PULSE 77; RESP 18; TEMP 36.6; O2SAT 97
[2022-05-23] MEDS: Dexamethasone 10 MG/ML VIAL PO (14:42)
[2022-05-23] MEDS: Ketorolac 15 MG/ML VIAL IM (14:43)
--- NOTE | 2022-05-23 15:05 | ED.GENADUL_ITS ---
Discharge Plan Disposition Patient Disposition: Home Condition: Stable Discharge Details Clinical Impression: Pharyngitis, Thrush, oral Primary Care Provider: Richelle Yan ED Provider: Azam Jade Home Meds and New Rx's Prescriptions: New fluconazole 100 mg tablet 200 mg PO DAILY Qty: 26 0RF Held ondansetron 8 mg tablet,disintegrating 8 mg PO Q8H PRN (Reason: nausea and vomiting) Qty: 30 3RF Hold Instructions: Resume on 06/07/22. No Action scopolamine base 1 mg over 3 days patch 3 day 1 patch transdermal Q3D Qty: 10 3RF Rx Instructions: For cancer/tx related nausea palliative care patient. fentanyl 100 mcg/hr patch 72 hour 2 patch transdermal Q48H MDD 2 patches Qty: 30 0RF Rx Instructions: for cancer related pain hydromorphone 4 mg tablet 4 mg PO Q3H PRN MDD 8 tabs PRN (Reason: pain) Qty: 180 0RF Rx Instructions: For cancer related pain Palliative care patient. sennosides [senna] 8.6 mg tablet 8.6 - 17.2 mg PO BID PRN (Reason: constipation) Qty: 90 3RF apixaban 5 mg tablet 5 mg PO BID montelukast 10 mg tablet 10 mg PO DAILY folic acid 1 mg tablet 1 mg PO DAILY levothyroxine 50 mcg capsule 50 mcg PO DAILY lactulose 10 gram/15 mL solution 10 g PO DAILY PRN (Reason: constipation) potassium chloride 20 mEq tablet extended release 10 meq PO DAILY [id number]-qsmedyxm-slbrdbm 24,000-76,000 -120,000 unit capsule,delayed release(DR/EC) 3 cap PO TID Rx Instructions: 3 caps with meal, 1 cap with snack cyclobenzaprine 10 mg tablet 10 mg PO TID prochlorperazine maleate [Compazine] 10 mg tablet 10 mg PO Q6H PRN pantoprazole [Protonix] 20 mg tablet,delayed release (DR/EC) 20 mg PO DAILY Children's Allergy Relief(estelita) 5 mg tablet,chewable 5 mg PO BID PRN dexamethasone 2 mg tablet 4 mg PO TID PRN Discharge Instructions Instructions: Oral Candidiasis (ED), Against Medical Advice (ED) Additional Instructions: You are leaving AGAINST MEDICAL ADVICE prior to completion of work-up. Please return to the [facility] at any time for further work-up and treatment as recommended. Please contact your primary care physician to arrange follow-up. Please do not use nausea medicine ondansetron while you are taking antifungal medication fluconazole. Referrals: Richelle Yan [Primary Care Provider] - Medical Decision Making 66-year-old female with history of pancreatic cancer status postchemotherapy, here with oral thrush. Decadron p.o. and Toradol IM given for pain. Labs reviewed: Rapid strep test negative. Plan to check labs to assess for neutropenia. Plan was discussed with patient. Patient refusing IV blood draw and request access port. Patient refusing to stay for blood draw. I had a discussion with the patient about my diagnostic/treatment plan. Patient declines plan and wishes to leave against medical advise. I reiterated my concerns to the patient and explained the risks of leaving prior to completion of workup and treatment. I specifically emphasized the possibility of life-threatening or lifestyle modifying disease that would not be appropriately treated if they leave. Patient verbalized understanding of my concerns and the potential for life threatening or lifestyle modifying disease. Patient has capacity to make informed decision. I again explained my concerns and urged the patient to stay for treatment as outlined. Patient continued to refuse. Patient does have decisional making capacity. I will initiate treatment for severe thrush with fluconazole and sent prescription to the pharmacy. Lab Data Lab results reviewed: Yes I reviewed the patient's lab results. HPI General Mode of arrival: ambulatory . Date/Time Provider Initiated Documentation: 05/23/22 13:18 . Limitations to Documentation: no limitations . Information obtained by: patient . HPI Narrative: 66-year-old female with multiple medical problems including pancreatic cancer, recently completed chemotherapy, here with pharyngitis. Patient was seen by her primary care physician twice and took 2 courses of antibiotics. Antibiotics have not helped. Pain is severe. She is having trouble swallowing. Related Data Home Medications Medication Instructions Recorded Confirmed apixaban 5 mg tablet 5 mg PO BID 11/09/21 05/23/22 cyclobenzaprine 10 mg tablet 10 mg PO TID 11/09/21 05/23/22 folic acid 1 mg tablet 1 mg PO DAILY 11/09/21 05/23/22 lactulose 10 gram/15 mL oral 10 g PO DAILY PRN constipation 11/09/21 05/23/22 solution levothyroxine 50 mcg capsule 50 mcg PO DAILY 11/09/21 05/23/22 npamve-gmhaaklq-jemrrer 3 cap PO TID 11/09/21 05/23/22 24,000-76,000-120,000 unit capsule,delayed rel loratadine 5 mg chewable tablet 5 mg PO BID PRN 11/09/21 05/23/22 (Children's Allergy Relief (loratadine)) montelukast 10 mg tablet 10 mg PO DAILY 11/09/21 05/23/22 pantoprazole 20 mg tablet,delayed 20 mg PO DAILY 11/09/21 05/23/22 release (Protonix) potassium chloride 20 mEq 10 meq PO DAILY 11/09/21 05/23/22 tablet,extended release prochlorperazine maleate 10 mg 10 mg PO Q6H PRN 11/09/21 05/23/22 tablet (Compazine) ondansetron 8 mg disintegrating 8 mg PO Q8H PRN nausea and 03/31/22 05/23/22 tablet vomiting #30 tabs scopolamine base 1 mg over 3 days 1 patch transdermal Q3D #10 ea 03/31/22 05/23/22 transdermal patch fentanyl 100 mcg/hr transdermal 2 patch transdermal Q48H #30 ea 05/05/22 05/23/22 patch hydromorphone 4 mg tablet 4 mg PO Q3H PRN PRN pain #180 tabs 05/05/22 05/23/22 sennosides 8.6 mg tablet (senna) 8.6 - 17.2 mg PO BID PRN 05/12/22 05/23/22 constipation #90 tabs dexamethasone 2 mg tablet 4 mg PO TID PRN 05/23/22 05/23/22 fluconazole 100 mg tablet 200 mg PO DAILY #26 tabs 05/23/22 Previous Rx's Medication Instructions Recorded ondansetron 8 mg disintegrating 8 mg PO Q8H PRN nausea and 03/31/22 tablet vomiting #30 tabs scopolamine base 1 mg over 3 days 1 patch transdermal Q3D #10 ea 03/31/22 transdermal patch fentanyl 100 mcg/hr transdermal 2 patch transdermal Q48H #30 ea 05/05/22 patch hydromorphone 4 mg tablet 4 mg PO Q3H PRN PRN pain #180 tabs 05/05/22 sennosides 8.6 mg tablet (senna) 8.6 - 17.2 mg PO BID PRN 05/12/22 constipation #90 tabs fluconazole 100 mg tablet 200 mg PO DAILY #26 tabs 05/23/22 Allergies Allergy/AdvReac Type Severity Reaction Status Date / Time No Known Allergies Allergy Unverified 05/23/22 12:47 General Stated Complaint: Sorethroat KENRICK: 4 Review of Systems All systems reviewed & are unremarkable except as noted in HPI and below Constitutional Constitutional: Denies fever(s) ENT Ears, Nose, Mouth, and Throat: Reports as per HPI PFSH All Active Problems Pharyngitis (Acute) Thrush, oral (Acute) Abnormal weight loss (Acute) Nausea & vomiting (Acute) Factor 5 Leiden mutation, heterozygous (Acute) Cancer-related pain (Acute) POLST (Physician Orders for Life-Sustaining Treatment) (Acute) DNI (do not intubate) (Acute) DNR (do not resuscitate) (Acute) Pancreatic cancer (Acute) Somatic dysfunction of cervical region (Acute) Other chronic pain (Acute) Headache (Acute) Referred otalgia of right ear (Acute) Medical History Acute respiratory failure with hypoxia Anemia Callosity Degeneration of cervical intervertebral disc Degeneration of lumbar intervertebral disc Depression Episodic paroxysmal hemicrania Esophageal reflux Factor V Leiden Hx: recurrent pneumonia Hyperlipidemia Hypothyroidism Malignant neoplasm of head of pancreas Memory loss Mixed incontinence Morbid obesity Neuropathy Other extrapyramidal disease and abnormal movement disorder Palliative care patient Peripheral vascular disease Shoulder pain Tobacco use disorder Transient alteration of awareness Urticaria Vaginismus Vascular occlusion Venous embolism Surgical History History of ERCP History of total left hip arthroplasty (~01/01/13) History of total right hip arthroplasty (~01/02/20) Hx of appendectomy Hx of arthroplasty Hx of foot surgery Family History Father Cancer Brain, Lung Paternal Grandmother Colon cancer Sister Cancer Melanoma Social History Smoking/Tobacco Use Status: Former Tobacco Use Quit Date: 07/18/21 Pack-years: 41 Tobacco: How many years used: 41 Smoking risk assessment performed?: Yes Alcohol Intake: never Drug use: Occasionally Substance use type: marijuana current occupation: retired art department head What is your relationship status?: Panel score (0-1 are the most socially isolated patients): 0 Do you feel safe in your relationship?: Yes Exam Const General: no acute distress Nutritional Appearance: thin HENMT Mouth: moist mucous membranes Throat: uvula midline, no peritonsillar masses and posterior oropharynx abnormal erythema, exudates and other (thrush) Eyes Conjunctivae: normal conjunctivae Sclera: normal sclerae Neck Neck: trachea midline and supple Resp Auscultation: clear to auscultation bilaterally, no rales, no rhonchi and no wheezes Cardio Rate: regular rate and not tachycardic Rhythm: regular rhythm GI Palpation: soft, not firm, no guarding, no masses, not rigid and nontender Skin General skin exam: no rashes or lesions noted Neuro General: patient alert, patient awake and tone normal Extrem General: no edema Psych Appearance: grossly normal Mental Status: mental status grossly normal Course Vital Signs Vital signs: Vital Signs Temperature 36.6 C 05/23/22 12:43 Pulse 77 05/23/22 12:43 Respiratory Rate 18 05/23/22 12:43 Blood Pressure 130/65 05/23/22 12:43 Pulse Oximetry 97 05/23/22 12:43 Temperature 36.6 C 05/23/22 12:43 Temperature Source Oral 05/23/22 12:43 Pulse 77 05/23/22 12:43 Respiratory Rate 18 05/23/22 12:43 Respiratory Effort Normal 05/23/22 12:47 Blood Pressure 130/65 05/23/22 12:43 Blood Pressure Position Sitting 05/23/22 12:43 Pulse Oximetry 97 05/23/22 12:43 Oxygen Delivery Method Room Air 05/23/22 12:43 Oxygen Flow Rate 0 05/23/22 12:43 Pain Level 10 05/23/22 12:43 Lab/Test Results Lab/Test Results: 05/23/22 12:50 Pharynx Group A Streptococcus Culture - Pending POC Strep Test-RAMIRO(Rapid) Start: 05/23/22 13:04 Freq: .Rapid Strep Test Status: Active Protocol: Document 05/23/22 13:06 NB (Rec: 05/23/22 13:06 ABRIL [id number]) Strep test-RAMIRO(Rapid)-POC POC-Strep test-RAMIRO (Rapid) Negative POC-Strep test-RAMIRO (Rapid) Negative
[2022-05-23] MEDS: Fluconazole 100 MG TAB 200 MG PO (15:19)
== END 2022-05-23 16:15 | disposition home or self-care (01) ==
PROVIDERS: Emergency Provider Student in an Organized Health Care Education/Training Program
DX: J02.9 Acute pharyngitis, unspecified (principal); B37.0 Candidal stomatitis; Z53.29 Procedure and treatment not carried out because of patient's decision for other reasons; Z92.21 Personal history of antineoplastic chemotherapy
CPT/HCPCS: 80048; 87880; 96372; 99284; 85025; 87081; 99283; J1100; J1885

== ENCOUNTER 2022-05-27 01:28 | Outpatient (RCR) | payer MEDICARE, MEDICAID, SELFPAY ==
[2022-05-27] MEDS: Normal Saline Flush 10 ML SYR IVP (09:00)
[2022-05-27 09:09] LABS: Abs Immature Grans 0.08 10^3/uL (0.0-0.06); Absolute Eosinophil Count 0.09 10^3/uL (0.0-0.7); Absolute Lymphocyte Count 1.49 10^3/uL (1.2-3.4); Absolute Monocyte Count 0.79 10^3/uL (0.1-0.8); Absolute Neutrophil Count 9.72 10^3/uL (1.2-6.7); Basophils % 0.2; Eosinophils % 0.7; HCT 37.2 % (36.0-46.0); HGB 12.7 g/dL (11.2-15.7); Immature Grans % 0.7; Lymphocytes % 12.2; MCH 28.6 pg (27.0-33.0); MCHC 34.1 % (32.0-36.0); MCV 84 fL (80-95); Monocytes % 6.5; Neutrophils % 79.7; Platelet Count 187 10^3/uL (130-400); RBC 4.44 10^6/uL (3.93-5.22); RDW 16.1 % (11.7-14.6); RDW-SD 49.4 fL
[2022-05-27 09:10] LABS: Absolute Basophil Count 0.02 10^3/uL (0.0-0.2)
[2022-05-27 09:32] LABS: ALT 30 U/L (14-59); AST 12 U/L (15-37); Alkaline Phosphatase 46 U/L (46-116); Anion Gap 6.4 mmol/L (3-11); BUN 9 mg/dL (7-18); Bilirubin, Total 0.7 mg/dL (0.2-1.0); CO2 29.6 mmol/L (21.0-32.0); CREATININE 0.4 mg/dL (0.55-1.02); Calcium 8.4 mg/dL (8.5-10.1); Chloride 95 mmol/L (98-107); Estimated GFR 109.77 (mL/min/1.73m2); Glucose 167 mg/dL (74-106); Potassium 3.5 mmol/L (3.5-5.1); Sodium 131 mmol/L (136-145); Total Protein 5.8 g/dL (6.4-8.2)
[2022-05-30 11:00] LABS: CA 19-9 4052 U/mL (<35)
== END 2022-06-17 23:59 | disposition home or self-care (01) ==
LOC: INF 01:28
PROVIDERS: Visit Provider Internal Medicine Hematology & Oncology
DX: C25.0 Malignant neoplasm of head of pancreas (principal); Z45.2 Encounter for adjustment and management of vascular access device
CPT/HCPCS: 36591; 80053; 85025; 86301